=== PATIENT | female | born 1960 | race Two or more races ===

== ENCOUNTER 2017-02-24 18:29 | Emergency (ER) | payer OTHER ==
[~2017-02-24] VITALS: Ht 144.8 cm; Wt 48.1 kg
[~2017-02-24 18:29] MED LIST: GEMFPOW3; METFORMIN; OMEPRAZOLE
[2017-02-24 18:56] VITALS: BP 128/81
== END 2017-02-24 20:21 | disposition home or self-care (01) ==
LOC: ER 18:29
DX: H57.13 Ocular pain, bilateral (principal); E11.9 Type 2 diabetes mellitus without complications; E78.5 Hyperlipidemia, unspecified; Z77.098 Contact with and (suspected) exposure to other hazardous, chiefly nonmedicinal, chemicals

== ENCOUNTER 2017-03-17 14:10 | Emergency (ER) | payer OTHER ==
[~2017-03-17] VITALS: Ht 144.8 cm; Wt 48.5 kg
[2017-03-17] MEDS ORDERED: cefTRIAXone SOD 1,000 MG VL IM ONE (15:45)
[2017-03-17 16:06] VITALS: BP 162/96
== END 2017-03-17 16:24 | disposition home or self-care (01) ==
LOC: ER 14:10
DX: J03.90 Acute tonsillitis, unspecified (principal); E11.9 Type 2 diabetes mellitus without complications; E78.5 Hyperlipidemia, unspecified; Z88.8 Allergy status to other drugs, medicaments and biological substances; Z79.84 Long term (current) use of oral hypoglycemic drugs
CPT/HCPCS: 96372; 99283; J0696

== ENCOUNTER 2017-10-18 18:56 | Emergency (ER) | payer OTHER ==
[~2017-10-18] VITALS: Ht 142.2 cm; Wt 48.5 kg
[2017-10-18 19:45] LABS: Urine Bacteria FEW /hpf (None Seen); Urine Blood Negative /uL (Negative); Urine Specific Gravity 1.004 (1.001-1.035); Urine WBC 18 /hpf (0 - 5)
[2017-10-18 19:47] LABS: Basophils # (auto) 0.1 uL; Basophils % (auto) 0.9 % (0.0-2.0); Eosinophils # (auto) 0.2 uL; Eosinophils % (auto) 2.8 % (0.0-7.0); Hematocrit 39.1 % (36.0-46.0); Hemoglobin 13.4 g/dL (12.2-16.2); Lymphocytes % (auto) 26.9 % (10.0-50.0); Mean Corpuscular Hemoglobin 31.4 pg (28.0-32.0); Mean Corpuscular Hgb Conc. 34.2 g/dL (32.0-36.0); Mean Corpuscular Volume 91.8 fL (80.0-100.0); Monocytes # (auto) 0.4 uL; Monocytes % (auto) 5.9 % (0.0-12.0); Neutrophils # (auto) 4.8 uL; Neutrophils % (auto) 63.5 % (37.0-80.0); Nucleated Red Blood Cells % 0.1 %; Platelet Count (auto) 271 10^3/uL (140-450); Red Blood Cells 4.26 10^6/uL (4.0-5.20); Red Cell Distribution Width 12.6 % (11.8-14.3); White Blood Cell 7.5 10^3/uL (4.4-10.8)
[2017-10-18 20:00] LABS: INR 0.91 (0.9-1.15); Partial Thromboplastin Time 26.8 sec (23.78-33.04); Prothrombin Time 9.8 sec (9.27-12.13)
[2017-10-18 20:01] LABS: Alanine Aminotransferase 25 U/L (13-56); Albumin 4.2 g/dL (3.4-5.0); Alkaline Phosphatase 87 U/L (45-117); Amylase 51 U/L (25-115); Anion Gap 6 (5-15); Aspartate Aminotransferase 12 U/L (15-37); Bilirubin, Total 0.2 mg/dL (0.2-1.0); Blood Urea Nitrogen 15 mg/dL (7-18); Calcium 8.6 mg/dL (8.5-10.1); Carbon Dioxide 27 mmol/L (21-32); Chloride 103 mmol/L (98-107); GFR African American 103 mL/min; GFR Non-African American 85 mL/min; Glucose 195 mg/dL (74-106); Lipase 177 U/L (73-393); Potassium 3.9 mmol/L (3.5-5.1); Sodium 136 mmol/L (136-145)
[2017-10-18] MEDS ORDERED: cefTRIAXone SOD 1,000 MG VL IM ONE (22:45)
[2017-10-18 23:34] VITALS: BP 162/90
== END 2017-10-18 23:35 | disposition home or self-care (01) ==
LOC: ER 18:56
DX: R10.32 Left lower quadrant pain (principal)
CPT/HCPCS: 36415; 74176; 80053; 81001; 82150; 83690; 84484; 85025; 85610; 85730; 93005; 96372; 99285; J0696

== ENCOUNTER → 2018-11-08 | Outpatient (CLI) | payer BC ==
[2018-11-08 08:11] LABS: Urine Bacteria MOD /hpf (None Seen); Urine Blood Negative /uL (Negative); Urine Mucus FEW (None Seen); Urine Specific Gravity 1.024 (1.001-1.035); Urine WBC 4 /hpf (0 - 5)
[2018-11-08 08:15] LABS: Basophils # (auto) 0 uL; Eosinophils # (auto) 0.2 uL; Eosinophils % (auto) 4.6 % (0.0-7.0); Hematocrit 40.5 % (36.0-46.0); Hemoglobin 13.8 g/dL (12.2-16.2); Lymphocytes # (auto) 1.5 uL; Lymphocytes % (auto) 41.4 % (10.0-50.0); Mean Corpuscular Hemoglobin 31.2 pg (28.0-32.0); Mean Corpuscular Hgb Conc. 34.1 g/dL (32.0-36.0); Mean Corpuscular Volume 91.6 fL (80.0-100.0); Monocytes # (auto) 0.3 uL; Monocytes % (auto) 8.6 % (0.0-12.0); Neutrophils # (auto) 1.7 uL; Neutrophils % (auto) 44.4 % (37.0-80.0); Platelet Count (auto) 260 10^3/uL (140-450); Red Blood Cells 4.42 10^6/uL (4.0-5.20); Red Cell Distribution Width 12.4 % (11.8-14.3); White Blood Cell 3.7 10^3/uL (4.4-10.8)
[2018-11-08 08:22] LABS: Albumin 4.1 g/dL (3.4-5.0); Calcium 8.7 mg/dL (8.5-10.1); Potassium 4.3 mmol/L (3.5-5.1)
[2018-11-08 08:23] LABS: Protein, Urine 9.4 mg/dL (0.0-11.9)
[2018-11-08 08:27] LABS: BUN/Creatinine Ratio 32.8; Bilirubin, Total 0.6 mg/dL (0.2-1.0); CRP High Sensitivity 0.03 mg/dL (< 0.3); Total Protein 7.2 g/dL (6.4-8.2)
== END | disposition home or self-care (01) ==
LOC: LAB 07:43
PROVIDERS: ATTEND Internal Medicine Nephrology
DX: E11.9 Type 2 diabetes mellitus without complications (principal); I10 Essential (primary) hypertension; R21 Rash and other nonspecific skin eruption
CPT/HCPCS: 36415; 80053; 80061; 81001; 82570; 84156; 84439; 84443; 85025; 85652; 86038; 86141

== ENCOUNTER → 2019-01-25 | Outpatient (CLI) | payer BC ==
[2019-01-25 15:49] LABS: Urine WBC None Seen /hpf (0 - 5)
[2019-01-25 16:52] LABS: Urine Bacteria NONE SEEN /hpf (None Seen); Urine Blood Negative /uL (Negative); Urine Specific Gravity 1.021 (1.001-1.035)
== END | disposition home or self-care (01) ==
LOC: LAB 15:37
PROVIDERS: ATTEND Internal Medicine Nephrology
DX: R10.30 Lower abdominal pain, unspecified (principal); E78.5 Hyperlipidemia, unspecified; E11.9 Type 2 diabetes mellitus without complications; I10 Essential (primary) hypertension
CPT/HCPCS: 81001; 87086

== ENCOUNTER 2019-01-27 12:50 | Emergency (ER) | payer BC, OTHER ==
[~2019-01-27] VITALS: Ht 147.3 cm; Wt 68.0 kg
[2019-01-27 13:37] LABS: Urine Bacteria NONE SEEN /hpf (None Seen); Urine Blood 1+ /uL (Negative); Urine Mucus FEW (None Seen); Urine Specific Gravity 1.027 (1.001-1.035); Urine WBC 1 /hpf (0 - 5)
[2019-01-27] MEDS ORDERED: HYDROcodone-ACET 10/325MG TAB PO ONE (13:45)
[2019-01-27 14:02] LABS: Basophils # (auto) 0 uL; Basophils % (auto) 0.9 % (0.0-2.0); Eosinophils # (auto) 0.1 uL; Hematocrit 39.8 % (36.0-46.0); Hemoglobin 13.5 g/dL (12.2-16.2); Lymphocytes # (auto) 1.6 uL; Lymphocytes % (auto) 34.3 % (10.0-50.0); Mean Corpuscular Hemoglobin 31.2 pg (28.0-32.0); Mean Corpuscular Hgb Conc. 33.9 g/dL (32.0-36.0); Mean Corpuscular Volume 92.1 fL (80.0-100.0); Monocytes # (auto) 0.3 uL; Monocytes % (auto) 7.3 % (0.0-12.0); Neutrophils # (auto) 2.5 uL; Neutrophils % (auto) 55.5 % (37.0-80.0); Nucleated Red Blood Cells % 0.1 %; Platelet Count (auto) 252 10^3/uL (140-450); Red Blood Cells 4.33 10^6/uL (4.0-5.20); White Blood Cell 4.5 10^3/uL (4.4-10.8)
[2019-01-27 14:16] LABS: Albumin 3.9 g/dL (3.4-5.0); Calcium 8.7 mg/dL (8.5-10.1)
[2019-01-27 14:23] LABS: Bilirubin, Total 0.3 mg/dL (0.2-1.0); Total Protein 7.3 g/dL (6.4-8.2)
[2019-01-27 16:13] VITALS: BP 132/76
== END 2019-01-27 17:35 | disposition home or self-care (01) ==
LOC: ER 12:50
DX: R10.31 Right lower quadrant pain (principal); R35.0 Frequency of micturition; E11.9 Type 2 diabetes mellitus without complications; E78.5 Hyperlipidemia, unspecified; I10 Essential (primary) hypertension
CPT/HCPCS: 36415; 76856; 80053; 81001; 85025; 93005

== ENCOUNTER → 2019-03-04 | Outpatient (CLI) | payer BC, OTHER ==
[2019-03-04 15:58] LABS: Calcium 8.5 mg/dL (8.5-10.1)
[2019-03-04 15:59] LABS: INR 1.07 (0.9-1.15); Partial Thromboplastin Time 28.1 sec (23.64-32.05)
[2019-03-04 16:00] LABS: BUN/Creatinine Ratio 33.8
== END | disposition home or self-care (01) ==
LOC: LAB 15:30
PROVIDERS: ATTEND Internal Medicine Nephrology
DX: K76.89 Other specified diseases of liver (principal); N20.1 Calculus of ureter; N13.5 Crossing vessel and stricture of ureter without hydronephrosis
CPT/HCPCS: 36415; 80048; 85610; 85730

== ENCOUNTER 2020-12-03 14:38 | Emergency (ER) | payer BC ==
[~2020-12-03] VITALS: Ht 172.7 cm; Wt 52.2 kg
[2020-12-03 16:12] VITALS: BP 167/83
[2020-12-03] MEDS ORDERED: IBUPROFEN 800 MG TAB PO ONE (16:45)
== END 2020-12-03 17:19 | disposition home or self-care (01) ==
LOC: ER 14:38
DX: S63.632A Sprain of interphalangeal joint of right middle finger, initial encounter (principal); E11.9 Type 2 diabetes mellitus without complications; I10 Essential (primary) hypertension; E78.5 Hyperlipidemia, unspecified; Z98.890 Other specified postprocedural states; X50.0XXA Overexertion from strenuous movement or load, initial encounter; Y93.89 Activity, other specified; Y92.89 Other specified places as the place of occurrence of the external cause; Y99.8 Other external cause status
CPT/HCPCS: 29130; 73140

== ENCOUNTER → 2021-06-15 | Outpatient (CLI) | payer BC ==
[2021-06-15 17:01] LABS: BUN/Creatinine Ratio 39.6; Calcium 8.5 mg/dL (8.5-10.1)
== END | disposition home or self-care (01) ==
LOC: LAB 15:56
PROVIDERS: ATTEND Internal Medicine Nephrology
DX: E11.9 Type 2 diabetes mellitus without complications (principal)
CPT/HCPCS: 36415; 80048; 83036; 84439; 84443

== ENCOUNTER 2021-08-09 17:17 | Emergency (ER) | payer BC ==
[~2021-08-09] VITALS: Ht 142.2 cm; Wt 52.2 kg
[2021-08-09] MEDS ORDERED: amLODIPine BESYLATE 5 MG TAB PO ONE (17:30)
[2021-08-09 19:02] LABS: Basophils # (auto) 0 10 ^3/uL (0-0.2); Basophils % (auto) 0.8 % (0.0-2.0); Eosinophils # (auto) 0.1 10 ^3/uL (0-0.8); Eosinophils % (auto) 2.1 % (0.0-7.0); Hematocrit 37.3 % (36.0-46.0); Hemoglobin 13.1 g/dL (12.2-16.2); Lymphocytes # (auto) 1.7 10 ^3/uL (0.4-5.4); Lymphocytes % (auto) 34.7 % (10.0-50.0); Mean Corpuscular Hemoglobin 31.8 pg (28.0-32.0); Mean Corpuscular Hgb Conc. 35.2 g/dL (32.0-36.0); Mean Corpuscular Volume 90.5 fL (80.0-100.0); Monocytes # (auto) 0.5 10 ^3/uL (0-1.3); Neutrophils # (auto) 2.7 10 ^3/uL (1.6-8.6); Neutrophils % (auto) 53.4 % (37.0-80.0); Nucleated Red Blood Cells % 0.1 %; Red Blood Cells 4.12 10^6/uL (4.0-5.20); Red Cell Distribution Width 12.6 % (11.8-14.3)
[2021-08-09 19:19] LABS: Potassium 3.9 mmol/L (3.5-5.1)
[2021-08-09 19:26] LABS: Albumin 4.2 g/dL (3.4-5.0); BUN/Creatinine Ratio 28.1; Bilirubin, Total 0.2 mg/dL (0.2-1.0); Magnesium 2.4 mg/dL (1.6-2.6); Total Protein 7.6 g/dL (6.4-8.2)
[2021-08-09 21:25] VITALS: BP 165/96
== END 2021-08-09 21:42 | disposition home or self-care (01) ==
LOC: ER 17:17 → EEVIPCON 17:17 → ER 21:42
DX: I16.0 Hypertensive urgency (principal); E11.9 Type 2 diabetes mellitus without complications; E78.5 Hyperlipidemia, unspecified
CPT/HCPCS: 36415; 70450; 80053; 83735; 84484; 85025; 93005

== ENCOUNTER → 2022-06-13 | Outpatient (CLI) | payer BC ==
[2022-06-13 07:28] LABS: Basophils # (auto) 0.1 10 ^3/uL (0-0.2); Basophils % (auto) 1.2 % (0.0-2.0); Eosinophils # (auto) 0.1 10 ^3/uL (0-0.8); Eosinophils % (auto) 2.8 % (0.0-7.0); Hematocrit 37.9 % (36.0-46.0); Hemoglobin 13.1 g/dL (12.2-16.2); Lymphocytes # (auto) 1.9 10 ^3/uL (0.4-5.4); Lymphocytes % (auto) 42.3 % (10.0-50.0); Mean Corpuscular Hemoglobin 31.2 pg (28.0-32.0); Mean Corpuscular Hgb Conc. 34.6 g/dL (32.0-36.0); Mean Corpuscular Volume 90.2 fL (80.0-100.0); Monocytes # (auto) 0.3 10 ^3/uL (0-1.3); Monocytes % (auto) 6.8 % (0.0-12.0); Neutrophils # (auto) 2.1 10 ^3/uL (1.6-8.6); Neutrophils % (auto) 46.9 % (37.0-80.0); Nucleated Red Blood Cells % 0.1 %; Red Blood Cells 4.21 10^6/uL (4.0-5.20); Red Cell Distribution Width 12.5 % (11.8-14.3); White Blood Cell 4.5 10^3/uL (4.4-10.8)
[2022-06-13 07:30] LABS: Urine Bacteria NONE SEEN /hpf (None Seen); Urine Blood Negative /uL (Negative); Urine Mucus FEW (None Seen); Urine Specific Gravity 1.019 (1.001-1.035); Urine WBC 1 /hpf (0 - 5)
[2022-06-13 08:01] LABS: Potassium 4.4 mmol/L (3.5-5.1)
[2022-06-13 08:07] LABS: BUN/Creatinine Ratio 51.1 (10.0-20.0); Bilirubin, Total 0.4 mg/dL (0.2-1.0); Total Protein 7.2 g/dL (6.4-8.2)
== END | disposition home or self-care (01) ==
LOC: LAB 06:54
PROVIDERS: ATTEND Student in an Organized Health Care Education/Training Program
DX: I10 Essential (primary) hypertension (principal); E11.9 Type 2 diabetes mellitus without complications
CPT/HCPCS: 36415; 80053; 80061; 81001; 83036; 84443; 85025

== ENCOUNTER → 2023-04-07 | Outpatient (CLI) | payer BC ==
[2023-04-07 07:44] LABS: Basophils # (auto) 0 10 ^3/uL (0-0.2); Basophils % (auto) 1.1 % (0.0-2.0); Eosinophils # (auto) 0.1 10 ^3/uL (0-0.8); Eosinophils % (auto) 3.4 % (0.0-7.0); Hematocrit 41.9 % (36.0-46.0); Hemoglobin 14.1 g/dL (12.2-16.2); Lymphocytes # (auto) 1.8 10 ^3/uL (0.4-5.4); Lymphocytes % (auto) 44.3 % (10.0-50.0); Mean Corpuscular Hemoglobin 31.2 pg (28.0-32.0); Mean Corpuscular Hgb Conc. 33.7 g/dL (32.0-36.0); Mean Corpuscular Volume 92.4 fL (80.0-100.0); Monocytes # (auto) 0.4 10 ^3/uL (0-1.3); Monocytes % (auto) 9.2 % (0.0-12.0); Neutrophils # (auto) 1.7 10 ^3/uL (1.6-8.6); Nucleated Red Blood Cells % 0.2 %; Red Blood Cells 4.53 10^6/uL (4.0-5.20); Red Cell Distribution Width 12.6 % (11.8-14.3); White Blood Cell 4.1 10^3/uL (4.4-10.8)
[2023-04-07 08:22] LABS: Creatinine, Urine 97.96 mg/dL (30.0-125.0)
[2023-04-07 08:24] LABS: Alkaline Phosphatase 66 U/L (46-116); Anion Gap 7 (5-15); Calcium 9.5 mg/dL (8.5-10.1); Carbon Dioxide 25 mmol/L (20-30); Chloride 107 mmol/L (98-107); Glucose 155 mg/dL (74-106); Sodium 139 mmol/L (136-145); Triglycerides 171 mg/dL (< 150)
[2023-04-07 08:25] LABS: LDL Cholesterol 122 mg/dL (< 100); Urine Bacteria NONE SEEN /hpf (None Seen); Urine Blood Negative /uL (Negative); Urine Clarity Clear (Clear); Urine Color Yellow (Yellow); Urine Mucus FEW (None Seen); Urine Protein, UAD Negative (Negative); Urine Specific Gravity 1.024 (1.001-1.035); Urine Urobilinogen Normal (Negative); Urine WBC 42 /hpf (0 - 5); Urine pH 5.5 (5.0-8.0)
[2023-04-07 08:26] LABS: Albumin 4.6 g/dL (3.2-4.8); Aspartate Aminotransferase 36 U/L (13-40)
[2023-04-07 08:27] LABS: Bilirubin, Total 0.6 mg/dL (0.2-1.0); Cholesterol 194 mg/dL (< 200); HDL Cholesterol 42 mg/dL (40-59)
[2023-04-07 08:28] LABS: Alanine Aminotransferase 29 U/L (7-40)
[2023-04-07 08:29] LABS: Potassium 5.2 mmol/L (3.5-5.1)
[2023-04-07 08:30] LABS: BUN/Creatinine Ratio 18.3 (10.0-20.0); Blood Urea Nitrogen 11 mg/dL (9-23)
== END | disposition home or self-care (01) ==
LOC: LAB 07:12
PROVIDERS: ATTEND Student in an Organized Health Care Education/Training Program
DX: E11.9 Type 2 diabetes mellitus without complications (principal); I10 Essential (primary) hypertension; F41.0 Panic disorder [episodic paroxysmal anxiety]
CPT/HCPCS: 36415; 80053; 80061; 81001; 82043; 82570; 83036; 84443; 85025

== ENCOUNTER → 2023-09-29 | Outpatient (CLI) | payer BC ==
[2023-09-29 07:02] LABS: Urine Bacteria None Seen /hpf (None Seen)
[2023-09-29 07:25] LABS: Urine Blood Negative /uL (Negative); Urine Clarity Clear (Clear); Urine Color Light-Yellow (Yellow); Urine Mucus FEW (None Seen); Urine Protein, UAD Negative (Negative); Urine Specific Gravity 1.029 (1.001-1.035); Urine Urobilinogen Normal (Negative); Urine WBC 2 /hpf (0 - 5)
[2023-09-29 07:32] LABS: Basophils # (auto) 0 10 ^3/uL (0-0.2); Basophils % (auto) 1.1 % (0.0-2.0); Eosinophils # (auto) 0.2 10 ^3/uL (0-0.8); Hematocrit 35.9 % (36.0-46.0); Hemoglobin 12.5 g/dL (12.2-16.2); Lymphocytes # (auto) 1.8 10 ^3/uL (0.4-5.4); Lymphocytes % (auto) 43.9 % (10.0-50.0); Mean Corpuscular Hemoglobin 31.8 pg (28.0-32.0); Mean Corpuscular Hgb Conc. 34.8 g/dL (32.0-36.0); Mean Corpuscular Volume 91.5 fL (80.0-100.0); Monocytes # (auto) 0.4 10 ^3/uL (0-1.3); Monocytes % (auto) 9.4 % (0.0-12.0); Neutrophils # (auto) 1.7 10 ^3/uL (1.6-8.6); Neutrophils % (auto) 41.6 % (37.0-80.0); Red Blood Cells 3.93 10^6/uL (4.0-5.20); Red Cell Distribution Width 12.7 % (11.8-14.3); White Blood Cell 4.1 10^3/uL (4.4-10.8)
[2023-09-29 07:38] LABS: Alanine Aminotransferase 17 U/L (7-40); Albumin 4.2 g/dL (3.2-4.8); Alkaline Phosphatase 76 U/L (46-116); Anion Gap 7 (5-15); Aspartate Aminotransferase 10 U/L (13-40); BUN/Creatinine Ratio 26.7 (10.0-20.0); Bilirubin, Total 0.4 mg/dL (0.2-1.0); Blood Urea Nitrogen 16 mg/dL (9-23); Carbon Dioxide 23 mmol/L (20-30); Chloride 112 mmol/L (98-107); Cholesterol 162 mg/dL (< 200); Glucose 167 mg/dL (74-106); HDL Cholesterol 36 mg/dL (40-59); LDL Cholesterol 100 mg/dL (< 100); Potassium 4.1 mmol/L (3.5-5.1); Sodium 142 mmol/L (136-145); Total Protein 6.1 g/dL (5.7-8.2); Triglycerides 134 mg/dL (< 150)
[2023-09-29 08:08] LABS: Creatinine, Urine 117.08 mg/dL (30.0-125.0)
== END | disposition home or self-care (01) ==
LOC: LAB 06:43
PROVIDERS: ATTEND Student in an Organized Health Care Education/Training Program
DX: Z12.11 Encounter for screening for malignant neoplasm of colon (principal); I10 Essential (primary) hypertension; E11.9 Type 2 diabetes mellitus without complications; R14.0 Abdominal distension (gaseous)
CPT/HCPCS: 36415; 80053; 80061; 81001; 82043; 82570; 83036; 84443; 85025

== ENCOUNTER 2024-08-13 07:27 | Outpatient (CLI) | payer BC ==
[2024-08-13 07:45] LABS: Basophils # (auto) 0 10 ^3/uL (0-0.2); Eosinophils # (auto) 0.2 10 ^3/uL (0-0.8); Eosinophils % (auto) 3.8 % (0.0-7.0); Hematocrit 39.7 % (36.0-46.0); Hemoglobin 13.5 g/dL (12.2-16.2); Lymphocytes # (auto) 1.6 10 ^3/uL (0.4-5.4); Lymphocytes % (auto) 35.9 % (10.0-50.0); Mean Corpuscular Hemoglobin 31.2 pg (28.0-32.0); Mean Corpuscular Hgb Conc. 34.1 g/dL (32.0-36.0); Mean Corpuscular Volume 91.6 fL (80.0-100.0); Monocytes # (auto) 0.4 10 ^3/uL (0-1.3); Monocytes % (auto) 8.9 % (0.0-12.0); Neutrophils # (auto) 2.3 10 ^3/uL (1.6-8.6); Neutrophils % (auto) 50.4 % (37.0-80.0); Nucleated Red Blood Cells % 0.1 %; Platelet Count (auto) 248 10^3/uL (140-450); Red Blood Cells 4.33 10^6/uL (4.0-5.20); Red Cell Distribution Width 12.7 % (11.8-14.3); White Blood Cell 4.5 10^3/uL (4.4-10.8)
[2024-08-13 08:28] LABS: Creatinine, Urine 102.43 mg/dL (30.0-125.0)
[2024-08-13 08:30] LABS: Microalb/Creat Ratio, Urine < 3.0
[2024-08-13 08:35] LABS: Alanine Aminotransferase 20 U/L (7-40); Albumin 4.5 g/dL (3.2-4.8); Alkaline Phosphatase 67 U/L (46-116); Anion Gap 8 (5-15); Aspartate Aminotransferase 15 U/L (13-40); BUN/Creatinine Ratio 30.3 (10.0-20.0); Bilirubin, Total 0.6 mg/dL (0.2-1.0); Blood Urea Nitrogen 20 mg/dL (9-23); Calcium 9.6 mg/dL (8.7-10.4); Carbon Dioxide 25 mmol/L (20-31); Cholesterol 187 mg/dL (< 200); Potassium 4.7 mmol/L (3.5-5.1); Sodium 142 mmol/L (136-145); Total Protein 6.7 g/dL (5.7-8.2)
[2024-08-13 08:45] LABS: Chloride 109 mmol/L (98-107); HDL Cholesterol 40 mg/dL (40-59); LDL Cholesterol 107 mg/dL (< 100); Triglycerides 217 mg/dL (< 150)
[2024-08-13 08:52] LABS: Glucose 174 mg/dL (74-106)
== END 2024-08-13 17:00 | disposition home or self-care (01) ==
LOC: LAB 07:27
PROVIDERS: ATTEND Student in an Organized Health Care Education/Training Program
DX: I10 Essential (primary) hypertension (principal); N39.0 Urinary tract infection, site not specified; E11.9 Type 2 diabetes mellitus without complications
CPT/HCPCS: 36415; 80053; 80061; 82043; 82570; 83036; 84443; 85025; 87086

== ENCOUNTER 2024-12-24 08:34 | Outpatient (CLI) | payer BC ==
[2024-12-24 09:24] LABS: Alanine Aminotransferase 19 U/L (7-40); Albumin 4.2 g/dL (3.2-4.8); Alkaline Phosphatase 59 U/L (46-116); Anion Gap 9 (5-15); Calcium 8.8 mg/dL (8.7-10.4); Carbon Dioxide 26 mmol/L (20-31); Chloride 106 mmol/L (98-107); Cholesterol 129 mg/dL (< 200); HDL Cholesterol 42 mg/dL (40-59); Potassium 4.9 mmol/L (3.5-5.1); Sodium 141 mmol/L (136-145); Total Protein 6.5 g/dL (5.7-8.2); Triglycerides 110 mg/dL (< 150)
[2024-12-24 09:25] LABS: Bilirubin, Total 0.6 mg/dL (0.2-1.0)
[2024-12-24 09:26] LABS: BUN/Creatinine Ratio 23.0 (10.0-20.0); Blood Urea Nitrogen 14 mg/dL (9-23)
[2024-12-24 09:27] LABS: Glucose 155 mg/dL (74-106)
== END 2024-12-24 17:00 | disposition home or self-care (01) ==
LOC: LAB 08:34
PROVIDERS: ATTEND Nurse Practitioner Family
DX: E11.9 Type 2 diabetes mellitus without complications
CPT/HCPCS: 36415; 80053; 80061; 83036

== ENCOUNTER 2025-01-22 07:05 | Outpatient (CLI) | payer BC | END 2025-01-22 17:00 | disposition home or self-care (01) | LOC: LAB 07:05 | PROVIDERS: ATTEND Student in an Organized Health Care Education/Training Program | DX: E55.9 Vitamin D deficiency, unspecified (principal); D50.0 Iron deficiency anemia secondary to blood loss (chronic); R10.13 Epigastric pain | CPT/HCPCS: 82306; 82607; 83013 ==

== ENCOUNTER 2025-02-13 18:18 | Inpatient (IN) | payer BC ==
[~2025-02-13] VITALS: Ht 142.2 cm; Wt 53.2 kg
[2025-02-13 18:52] LABS: Hematocrit 39.8 % (36.0-46.0); Hemoglobin 13.7 g/dL (12.2-16.2); Mean Corpuscular Hemoglobin 31.5 pg (28.0-32.0); Mean Corpuscular Volume 91.4 fL (80.0-100.0); Nucleated Red Blood Cells % 0.1 %
[2025-02-13 18:53] LABS: Chloride 101 mmol/L (98-107); Potassium 3.9 mmol/L (3.5-5.1); Sodium 138 mmol/L (136-145)
[2025-02-13 18:54] LABS: Anion Gap 13 (5-15); Calcium 9.5 mg/dL (8.7-10.4); Carbon Dioxide 24 mmol/L (20-31)
[2025-02-13 18:59] LABS: BUN/Creatinine Ratio 21.9 (10.0-20.0); Blood Urea Nitrogen 21 mg/dL (9-23)
[2025-02-13 19:05] LABS: Glucose 266 mg/dL (74-106)
--- NOTE | 2025-02-13 19:21 | ED.PDOC ---
HPI Comments 64-year-old female with past medical history of hypertension and diabetes who came to ER for right-sided neck pain, arm pain, chest pain over the past day. States earlier today she started having chest tightness, followed by right- sided neck pain, radiating to right shoulder. Patient self-medicated with a muscle relaxants for the pain. Noted that her blood pressure was elevated at home, with recurrence of chest tightness the patient come to the ER. Reports compliance with her medications. No shortness of breath. No recent fever, cough. No numbness, weakness of the extremities. Chief Complaint: High Blood Pressure Time Seen by MD: 19:21 Primary Care Provider: CLARENCE Souza Notes: Nurses Notes Allergies: Coded Allergies: NO KNOWN ALLERGIES (Unverified , 08/26/10) Home Meds Reported Medications [Omeprazole] No Conflict Check 08/26/10 Gemfibrozil (Gemfibrozil) Pow 08/26/10 [Metformin] No Conflict Check 08/26/10 Information Source: Patient Mode of Arrival: Ambulatory Past Medical History PAST MEDICAL HISTORY: DM, Gallstones, High Lipids, HTN Surgical History: DATA ANALYST History: No Pertinent DATA ANALYST History Family History Family History: Family hx of DM, Family hx of HTN Social History Smoker: Non-Smoker Alcohol: Occasionally Drugs: Denies Drug Use Lives In: Home Constitutional: denies: chills, diaphoresis, fatigue, fever, malaise, sweats, weakness, others EENTM: denies: blurred vision, double vision, ear bleeding, ear discharge, ear drainage, ear pain, ear ringing, eye pain, eye redness, hearing loss, mouth pain, mouth swelling, nasal discharge, nose bleeding, nose congestion, nose pain, photophobia, tearing, throat pain, throat swelling, voice changes, others Respiratory: denies: cough, hemoptysis, orthopnea, SOB at rest, shortness of breath, SOB with excertion, stridor, wheezing, others Cardiovascular: reports: chest pain; denies: dizzy spells, diaphoresis, Dyspnea on exertion, edema, irregular heart beat, left arm pain, lightheadedness, palpitations, PND, syncope, others Gastrointestinal: denies: abdomen distended, abdominal pain, blood streaked bowels, constipated, diarrhea, dysphagia, difficulty swallowing, hematemesis, melena, nausea, poor appetite, poor fluid intake, rectal bleeding, rectal pain, vomiting, others Genitourinary: denies: abnormal vagina bleeding, burning, dyspareunia, dysuria, flank pain, frequency, hematuria, incontinence, pain, , vagina discharge, urgency, others Neurological: denies: dizziness, fainting, headache, left sided numbness, left sided weakness, numbness, paresthesia, pre-existing deficit, right sided numbness, right sided weakness, seizure, speech problems, tingling, tremors, we akness, others Musculoskeletal: reports: muscle pain, neck pain; denies: back pain, gout, joint pain, joint swelling, muscle stiffness, others Integumetry: denies: bruises, change in color, change in hair/nails, dryness, laceration, lesions, lumps, rash, wounds, others Allergic/Immunocompromised: denies: Difficulty Healing, Frequent Infections, Hives, Itching, others Hematologic/Lymphatic: denies: anemia, blood clots, easy bleeding, easy bruising, swollen glands, others Endocrine: denies: excessive hunger, excessive sweating, excessive thirst, excessive urination, flushing, intolerance to cold, intolerance to heat, unexplained weight gain, unexplained weight loss, others Psychiatric: denies: anxiety, bipolar disorder, depression, hopeless, panic disorder, schizophrenia, sleepless, suicidal, others Physical Exam General Appearance: No Apparent Distress, Normal HEENT: Normal ENT Inspection, Pharynx Normal, TMs Normal Neck: Full Range of Motion, Normal, Normal Inspection, Other (+ttp along right trapezius) Respiratory: Chest Non-Tender, Lungs Clear, No Accessory Muscle Use, No Respiratory Distress, Normal Breath Sounds Cardiovascular: No Edema, No JVD, No Murmur, No Gallop, Normal Peripheral Pulses, Regular Rate/Rhythm Breast Exam: Deferred Gastrointestinal: No Organomegaly, Non Tender, No Pulsatile Mass, Normal Bowel Sounds, Soft Genitalia: Deferred Pelvic: Deferred Rectal: Deferred Extremities: No calf tenderness, Normal capillary refill, Normal inspection, Normal range of motion, Non-tender, No pedal edema Musculoskeletal : Apperance: Normal Neurologic: Alert, tools and parts attendant II-XII nml as Tested, No Motor Deficits, Normal Affect, Normal Mood, No Sensory Deficits Cerebellar Function: Normal Reflexes: Normal Skin: Dry, Normal Color, Warm Lymphatic: No Adenopathy EKG EKG : Pulse Rate (adult): 109 Cardiac Rhythm: ST Block: None Hypertrophy: None ST: Normal Was a procedure done? Was a procedure done?: No CP Differential Dx Differential Diagnosis: Angina, Anxiety / Panic Attack Differential Diagnosis: HTN Essential, HTN Accelerated Differential Diagnosis: Angina, Chest Wall Pain, Costochondritis, Esophageal reflux/spasm, Gastritis, Myocardial Infarction X-Ray, Labs, Meds, VS Vital Signs Date Time Temp Pulse Resp B/P (MAP) Pulse Ox O2 Delivery O2 Flow Rate FiO2 02/13/25 20:11 75 191/101 02/13/25 20:08 98.8 02/13/25 19:21 109 02/13/25 18:27 109 02/13/25 18:20 98.6 106 18 197/95 96 98.6 Lab Test 02/13/25 19:12 02/13/25 18:29 Range/Units Troponin I High Sensitivity 48 *H 42 *H </=34 ng/L White Blood Count 7.0 4.4-10.8 10^3/uL Red Blood Count 4.36 4.0-5.20 10^6/uL Hemoglobin 13.7 12.2-16.2 g/dL Hematocrit 39.8 36.0-46.0 % Mean Corpuscular Volume 91.4 80.0-100.0 fL Mean Corpuscular Hemoglobin 31.5 28.0-32.0 pg Mean Corpuscular Hemoglobin Concent 34.4 32.0-36.0 g/dL Red Cell Distribution Width 12.6 11.8-14.3 % Platelet Count 284 140-450 10^3/uL Mean Platelet Volume 8.5 6.9-10.8 fL Neutrophils (%) (Auto) 57.8 37.0-80.0 % Lymphocytes (%) (Auto) 31.7 10.0-50.0 % Monocytes (%) (Auto) 7.4 0.0-12.0 % Eosinophils (%) (Auto) 2.2 0.0-7.0 % Basophils (%) (Auto) 0.9 0.0-2.0 % Neutrophils # (Auto) 4.0 1.6-8.6 10 ^3/uL Lymphocytes # (Auto) 2.2 0.4-5.4 10 ^3/uL Monocytes # (Auto) 0.5 0-1.3 10 ^3/uL Eosinophils # (Auto) 0.2 0-0.8 10 ^3/uL Basophils # (Auto) 0.1 0-0.2 10 ^3/uL Nucleated Red Blood Cells 0.1 % Sodium Level 138 136-145 mmol/L Potassium Level 3.9 3.5-5.1 mmol/L Chloride Level 101 98-107 mmol/L Carbon Dioxide Level 24 20-31 mmol/L Anion Gap 13 5-15 Blood Urea Nitrogen 21 9-23 mg/dL Creatinine 0.96 0.550-1.02 mg/dL Glomerular Filtration Rate Calc 66 >90 mL/min BUN/Creatinine Ratio 21.9 H 10.0-20.0 Serum Glucose 266 H 74-106 mg/dL Calcium Level 9.5 8.7-10.4 mg/dL Vitamin B12 Level Pending Thyroid Stimulating Hormone (TSH) Pending Current Medications Medications (Trade) Dose Ordered Sig/Wilma Route Start Time Stop Time Status Last Admin Aspirin 325 mg ONCE ONCE PO 02/13/25 19:30 02/13/25 19:31 DC 02/13/25 20:08 Acetaminophen (Tylenol Tablet) 650 mg ONCE ONCE PO 02/13/25 19:30 02/13/25 19:31 DC 02/13/25 20:08 Lidocaine (Lidoderm 5% Topical Patch) 1 patch ONCE ONCE TOP 02/13/25 19:30 02/13/25 19:31 DC 02/13/25 21:33 Labetalol HCl (Labetalol HCl) 20 mg ONCE ONCE IV 02/13/25 19:30 02/13/25 19:31 DC 02/13/25 20:11 Time of 1ST Reevaluation: 19:17 Reevaluation 1ST: Unchanged Patient Education/Counseling: Diagnosis, Treatment Family Education/Counseling: No Family Present SEPSIS Sepsis Screen Date sepsis recognized/suspect: Feb 13, 2025 Time Sepsis recognized/suspect: 1820 Recent Procedure: No On Antibiotic Therapy: No Respiratory Rate >20: No Heart Rate >90: Yes Temp<36 C (96.8 F) or >38.3 C: No SBP <90 or MAP <65 mmHG: No New Acute Mental Status Change: No Is the patient on CPAP, BIPAP,: No Physician Orders Electrocardigram (02/13/25 18:23) Troponin-I Hs (02/13/25 21:23) Electrocardigram (02/13/25 19:23) Electrocardigram (02/13/25 21:23) Urinalysis (02/13/25 18:24) Chest Xray 1 View (02/13/25 18:24) Vital Signs Date Time Temp Pulse Resp B/P (MAP) Pulse Ox O2 Delivery O2 Flow Rate FiO2 02/13/25 20:11 75 191/101 02/13/25 20:08 98.8 02/13/25 19:21 109 02/13/25 18:27 109 02/13/25 18:20 98.6 106 18 197/95 96 98.6 Laboratory Tests Test 02/13/25 18:29 White Blood Count 7.0 10^3/uL (4.4-10.8) Medications Medications Dose Ordered Sig/Wilma Route Start Time Stop Time Status Last Admin Dose Admin Acetaminophen 650 mg ONCE ONCE PO 02/13/25 19:30 02/13/25 19:31 DC 02/13/25 20:08 Aspirin 325 mg ONCE ONCE PO 02/13/25 19:30 02/13/25 19:31 DC 02/13/25 20:08 Labetalol HCl 20 mg ONCE ONCE IV 02/13/25 19:30 02/13/25 19:31 DC 02/13/25 20:11 Lidocaine 1 patch ONCE ONCE TOP 02/13/25 19:30 02/13/25 19:31 DC 02/13/25 21:33 Departure 1 Departure Time of Disposition: 19:59 (64-year-old female with past medical history of hypertension and diabetes who came to ER for right-sided neck pain, arm pain, chest pain over the past day. Patient arrives with elevated blood pressure, given the reports of chest discomfort with her comorbidities consider ACS. Patient's initial high sensitivity troponin is minimally elevated, has a heart score of 5. Repeated troponin is stably minimally elevated in the 40s. Patient was given an aspirin for this. Patient with uncontrolled hypertension likely further contributing to end-organ damage, demand ischemia given IV labetalol for better blood control. Patient also with right-sided neck pain, has no numbness, weakness of the extremity, no signs concerning for acute cervical cord compromise, does not warrant any emergent MR imaging of the cervical spine. Patient likely with muscular pain. Was given oral Tylenol, topical lidocaine patch for this. Pt with no tearing chest pain do not suspect aortic dissection. Patient with no evidence of widened mediastinum on chest x-ray. Pt with positive troponin she will be admitted for further workup of chest pain.) Impression: Primary Impression: Midsternal chest pain Additional Impressions: Neck pain on right side Uncontrolled hypertension Elevated troponin I level Demand ischemia Disposition: ADMITTED INPATIENT Condition: Stable Discharged With: Self Critical Care Note Critical Care Time?: Yes (35 min-critical care time only) Critical care comment: Patient with uncontrolled hypertension, signs of acute end-organ damage with elevated troponin. Required aspirin administration and IV antihypertensives. Stability Stability form required: No Heart Score Heart Score: Heart Score Response (Comments) Value History Moderate Suspicious 1 EKG Repolarization Disturb 1 Age 45-64 1 Risk Factors 1 or 2 risk factors 1 Troponin 1-2 x's Normal limit 1 Total 5 I personally scribed for SARBJIT KO MD ([email or web address]) on 02/13/25 at 19:21. Electronically submitted by Donnie Álvarez ([facility]). SARBJIT KO MD Feb 13, 2025 19:21
[2025-02-13] MEDS: ACETAMINOPHEN 325 MG TAB PO ONE (20:08)
[2025-02-13] MEDS: LABETALOL HCL 20 MG/4 ML VL IV ONE (20:11)
--- NOTE | 2025-02-13 20:49 | DVH ---
CHEST RADIOGRAPH Indication: CHEST TIGHTNESS Technique: Single frontal view of the chest was obtained Comparison: XY CHEST XRAY 1 VIEW on DOS: 08/11/23, XY CHEST PORTABLE on DOS: 05/31/22 FINDINGS/IMPRESSION: The lungs are clear. The cardiomediastinal silhouette is unremarkable. No pleural effusion or pneumothorax. No acute osseous abnormality.
--- NOTE | 2025-02-13 20:52 | DVHHPRES ---
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 She feels something different in her chest. Then she started having right neck pain and radiating to right arm I. She measured her blood pressure during the episode, which was 186/99. She took lisinopril 20 mg. Which did not improve her blood pressure. Then she took her regular dose of glipizide and muscle relaxant. Currently the patient is experiencing 6/10 pain. Does not have any shortness of breaths now. During the chest pain episode she had a little bit of shortness of breaths. No relation with sitting up or lying down. Past medical history: As above Past surgical history: None Allergies: None Home medications: Glipizide, insulin, baclofen, atorvastatin Smoking: Never Alcohol: Never Drugs: Never Family doctor: Dr. 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 Code status: Full code Review of Systems Cardiovascular: Chest Pain Allergies: Coded Allergies: NO KNOWN ALLERGIES (Unverified , 08/26/10) Exam Vital Signs Vital Signs Date Time Temp Pulse Resp B/P (MAP) Pulse Ox O2 Delivery O2 Flow Rate FiO2 02/13/25 20:11 75 191/101 02/13/25 20:08 98.8 02/13/25 18:20 18 96 Exam Pt is lying on bed General Appearance: Alert, Oriented X3, Cooperative, Mild distress HEENT: Atraumatic, Mucous membranes moist/pink Respiratory: Clear to auscultation, Normal air movement, No added sounds Cardiovascular: Regular rate, Normal S1, Normal S2, No murmurs Abdominal/ : Active bowel sounds, Soft, no distention, no tenderness Extremities: No edema, Normal pulses, No tenderness/swelling Skin: No Significant rash, except past surgical scars Neuro: Normal speech, sensorimotor deficits none Psych/Mental Status: Mental status NL, Mood NL Nurse was there as ab initio etl developer during examination Labs/Xrays Labs Test 02/13/25 19:12 02/13/25 18:29 Range/Units Troponin I High Sensitivity 48 *H </=34 ng/L White Blood Count 7.0 4.4-10.8 10^3/uL Red Blood Count 4.36 4.0-5.20 10^6/uL Hemoglobin 13.7 12.2-16.2 g/dL Hematocrit 39.8 36.0-46.0 % Mean Corpuscular Volume 91.4 80.0-100.0 fL Mean Corpuscular Hemoglobin 31.5 28.0-32.0 pg Mean Corpuscular Hemoglobin Concent 34.4 32.0-36.0 g/dL Red Cell Distribution Width 12.6 11.8-14.3 % Platelet Count 284 140-450 10^3/uL Mean Platelet Volume 8.5 6.9-10.8 fL Neutrophils (%) (Auto) 57.8 37.0-80.0 % Lymphocytes (%) (Auto) 31.7 10.0-50.0 % Monocytes (%) (Auto) 7.4 0.0-12.0 % Eosinophils (%) (Auto) 2.2 0.0-7.0 % Basophils (%) (Auto) 0.9 0.0-2.0 % Neutrophils # (Auto) 4.0 1.6-8.6 10 ^3/uL Lymphocytes # (Auto) 2.2 0.4-5.4 10 ^3/uL Monocytes # (Auto) 0.5 0-1.3 10 ^3/uL Eosinophils # (Auto) 0.2 0-0.8 10 ^3/uL Basophils # (Auto) 0.1 0-0.2 10 ^3/uL Nucleated Red Blood Cells 0.1 % Sodium Level 138 136-145 mmol/L Potassium Level 3.9 3.5-5.1 mmol/L Chloride Level 101 98-107 mmol/L Carbon Dioxide Level 24 20-31 mmol/L Anion Gap 13 5-15 Blood Urea Nitrogen 21 9-23 mg/dL Creatinine 0.96 0.550-1.02 mg/dL Glomerular Filtration Rate Calc 66 >90 mL/min BUN/Creatinine Ratio 21.9 H 10.0-20.0 Serum Glucose 266 H 74-106 mg/dL Calcium Level 9.5 8.7-10.4 mg/dL SEPSIS Sepsis Screen Date sepsis recognized/suspect: Feb 13, 2025 Time Sepsis recognized/suspect: 1821 Recent Procedure: No On Antibiotic Therapy: No Respiratory Rate >20: No Heart Rate >90: Yes Temp<36 C (96.8 F) or >38.3 C: No SBP <90 or MAP <65 mmHG: No New Acute Mental Status Change: No Is the patient on CPAP, BIPAP,: No Physician Orders Electrocardigram (02/13/25 18:23) Troponin-I Hs (02/13/25 21:23) Electrocardigram (02/13/25 19:23) Electrocardigram (02/13/25 21:23) Urinalysis (02/13/25 18:24) Chest Xray 1 View (02/13/25 18:24) Vital Signs Date Time Temp Pulse Resp B/P (MAP) Pulse Ox O2 Delivery O2 Flow Rate FiO2 02/13/25 20:11 75 191/101 02/13/25 20:08 98.8 02/13/25 19:21 109 02/13/25 18:27 109 02/13/25 18:20 98.6 106 18 197/95 96 98.6 Laboratory Tests Test 02/13/25 18:29 White Blood Count 7.0 10^3/uL (4.4-10.8) Medications Medications Dose Ordered Sig/Wilma Route Start Time Stop Time Status Last Admin Dose Admin Acetaminophen 650 mg ONCE ONCE PO 02/13/25 19:30 02/13/25 19:31 DC 02/13/25 20:08 650 MG Aspirin 325 mg ONCE ONCE PO 02/13/25 19:30 02/13/25 19:31 DC 02/13/25 20:08 325 MG Labetalol HCl 20 mg ONCE ONCE IV 02/13/25 19:30 02/13/25 19:31 DC 02/13/25 20:11 20 MG Assessment/Plan Assessment/Plan Chest pain rule out ACS NSTEMI type 1 versus type 2 Hypertensive heart disease EKG: No ST elevation, minimal ST depression in inferior leads Troponin: 40s Echocardiography ordered Aspirin loading dose given Atorvastatin Lisinopril CXR: No abnormality detected Urinalysis ordered Uncontrolled type 2 diabetes mellitus Insulin Lantus Mild insulin sliding scale GI prophylaxis: Pantoprazole DVT prophylaxis: Lovenox Diet: Cardiac Goals of care discussed with the patient for more than 27 minutes: Full code status Case discussed with Dr. Trammell, patient and RN Plan discussed with: Patient, Other Visit Coding STANDARD RES Billing Provider: GISELA TRAMMELL MD Date of Service if different f: Feb 13, 2025 Common Visit Codes: [id number] INP/OBS CARE (HIGH) Secondary Visit Codes: [id number] CARE PLAN 30 MINUTES SOHAIL LI RESIDENT Feb 13, 2025 20:52
[2025-02-13] MEDS ORDERED: ONDANSETRON HCL 4 MG/2 ML VIAL IV PRN (21:00)
[2025-02-13] MEDS ORDERED: DEXTROSE (50%) 50ML SYRG IV PRN (21:15)
[2025-02-13] MEDS: KETOROLAC TROMETH 30 MG/ML 1ML VIAL IV ONE (21:30)
[2025-02-13] MEDS: ENOXAPARIN SOD 40 MG/0.4 ML SYRINGE SC SCH (21:33)
[2025-02-13] MEDS: LIDOCAINE 5% TOPICAL PATCH TOP ONE (21:33)
[2025-02-13 21:45] VITALS: BP 124/51; PULSE 85; RESP 20; TEMP 98.4; O2SAT 97
[2025-02-13 22:21] VITALS: BP 124/51; PULSE 78; PULSE 85; RESP 18; RESP 20; TEMP 98.4; O2SAT 97
[2025-02-13] MEDS: ACCU-CHEK COMFORT CURVE STRIP VI SCH (22:54)
[2025-02-13] MEDS: ATORVASTATIN 20 MG TAB PO ONE (22:54)
[2025-02-13] MEDS: InsuLIN REG 1unit/0.01ml Soln (100units/ml) SC SCH (22:55)
[2025-02-14] VITALS (9 sets, daily range): BP systolic 114–143; BP diastolic 71–81; PULSE 78–89; RESP 16–18; TEMP 97.8–98.5; O2SAT 95–99
[2025-02-14 03:50] LABS: Urine Protein, UAD Negative (Negative)
[2025-02-14 04:01] LABS: Amphetamine Screen, Urine NEGATIVE (NEGATIVE); Barbiturate Scree,Urine NEGATIVE (NEGATIVE); Benzodiazephine Screen, Urine NEGATIVE (NEGATIVE); Cannabinoid Screen, Urine NEGATIVE (NEGATIVE); Cocaine Screen, Urine NEGATIVE (NEGATIVE); Opiate Scree,Urine NEGATIVE (NEGATIVE); Phencyclidine Screen, Urine NEGATIVE (NEGATIVE)
[2025-02-14] MEDS: PANTOPRAZOLE 40 MG TAB PO SCH (05:56)
[2025-02-14] MEDS: INSULIN LANTUS (GLARGINE) 1 /0.01ml (100units/ml) SC SCH (06:00)
[2025-02-14 07:29] LABS: Hematocrit 38.6 % (36.0-46.0); Hemoglobin 12.8 g/dL (12.2-16.2); Mean Corpuscular Hemoglobin 30.5 pg (28.0-32.0); Mean Corpuscular Volume 91.5 fL (80.0-100.0); Nucleated Red Blood Cells % 0.1 %
[2025-02-14 07:38] LABS: INR 0.98 (0.9-1.15); Partial Thromboplastin Time 29.3 SEC (24.5-34.5); Prothrombin Time 10.4 sec (9.3-11.8)
[2025-02-14 07:41] LABS: Alanine Aminotransferase 25 U/L (7-40); Albumin 4.5 g/dL (3.2-4.8); Alkaline Phosphatase 81 U/L (46-116); Anion Gap 10 (5-15); BUN/Creatinine Ratio 20.3 (10.0-20.0); Bilirubin, Total 0.5 mg/dL (0.2-1.0); Blood Urea Nitrogen 13 mg/dL (9-23); Calcium 9.5 mg/dL (8.7-10.4); Carbon Dioxide 28 mmol/L (20-31); Chloride 102 mmol/L (98-107); Potassium 3.5 mmol/L (3.5-5.1); Sodium 140 mmol/L (136-145); Total Protein 7.1 g/dL (5.7-8.2)
[2025-02-14 07:48] LABS: Glucose 165 mg/dL (74-106)
[2025-02-14] MEDS: ERGOCALCIFEROL 50,000 UNIT(1.25MG) CAP PO SCH (09:18)
[2025-02-14] MEDS: LISINOPRIL 20 MG TAB PO SCH (09:19)
[2025-02-14] MEDS: ACETAMINOPHEN 325 MG TAB PO PRN (09:25)
[2025-02-14 09:26] LABS: Alanine Aminotransferase 23 U/L (7-40); Alkaline Phosphatase 81 U/L (46-116); Total Protein 7.1 g/dL (5.7-8.2)
[2025-02-14 09:27] LABS: Albumin 4.5 g/dL (3.2-4.8); Bilirubin, Direct < 0.1 mg/dL (<0.3); Bilirubin, Total 0.4 mg/dL (0.2-1.0); Cholesterol 180 mg/dL (< 200); HDL Cholesterol 38 mg/dL (40-59); Triglycerides 286 mg/dL (< 150)
--- NOTE | 2025-02-14 10:13 | ECG ---
[facility] Test Date: 2025-02-13 Test Time: 18:27:40 Pat Name: ANA KO Department: Room: 0206T A Gender: F Microcomputer Technician: WAN : 1960 Requested By: FALGUNI KO* Order Number: [id number] Reading MD: Albino Pulido Measurements Intervals [place] Rate: 109 P: 72 ID: [id number] QRS: 68 QRSD: 93 T: 52 QT: 322 QTc: 434 Interpretive Statements Sinus tachycardia Minimal ST depression, diffuse leads Electronically Signed On 02-20-2025 18:43:18 PST by Albino Pulido Please click the below link to view image of tracing.
--- NOTE | 2025-02-14 10:13 | ECG ---
[facility] Test Date: 2025-02-13 Test Time: 19:34:42 Pat Name: ANA KO Department: Room: 0206T A Gender: F Coach Professional Athletes: TAYA : 1960 Requested By: FALGUNI KO* Order Number: [id number] Reading MD: Albino Pulido Measurements Intervals [place] Rate: 99 P: 60 ME: 139 QRS: 61 QRSD: 93 T: 46 QT: 342 QTc: 439 Interpretive Statements Sinus rhythm Minimal ST depression, inferior leads Electronically Signed On 02-20-2025 18:43:46 PST by Albino Pulido Please click the below link to view image of tracing.
--- NOTE | 2025-02-14 10:14 | ECG ---
[facility] Test Date: 2025-02-13 Test Time: 18:28:30 Pat Name: ANA KO Department: Room: 0206T A Gender: F Designer/Writer: WAN : 1960 Requested By: FALGUNI KO* Order Number: [id number] Reading MD: Albino Puldio Measurements Intervals [place] Rate: 107 P: 69 LA: 177 QRS: 68 QRSD: 93 T: 56 QT: 327 QTc: 437 Interpretive Statements Sinus tachycardia Minimal ST depression, diffuse leads Electronically Signed On 02-20-2025 18:43:21 PST by Albino Pulido Please click the below link to view image of tracing.
[2025-02-14] MEDS: IOHEXOL 350 MG/ML 100ML IJ ONE (12:53)
--- NOTE | 2025-02-14 15:50 | DVHPNRES ---
Progress Note Date Seen: Feb 14, 2025 Resident Creating Document: JEAN-PIERRE CODY RESIDENT Medical Necessity Reason Pt with a Central, PICC or Fol: No Subjective Review of Systems Patient is a 64-year-old female with past medical history of ljv-imlthcl-dkaowfkjk type 2 diabetes mellitus, hypertension who came to the hospital with chief complaints of 5/10 chest pain which she states is tight pressure-like in nature and comes and goes associated with neck stiffness and radiating to the right arm. 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 She states it started when she was shoveling in the backyard. She states it started at noon when she checked her blood pressure at home it was 150/90. on arrival to the ED patient's blood pressure was 197/95. patient states she took lisinopril 20 mg before coming to the ED. Which did not improve her blood pressure. Patient denies any shortness of breath, nausea, vomiting, blurring of vision, dizziness, sick contacts, travel. Patient also states she takes blood pressure medication at night every day instead of morning. Past surgical history: Denies Family history: Reviewed, noncontributory Personal history: Smoke 14 years ago, drinks occasionally, denies drug use, Medication history: Glipizide, omeprazole, baclofen, atorvastatin, lisinopril PCP: Dr. Velasquez Lives with: Family Code status: Full code 02/14/2025: patient seen at bedside. Patient denies any chest pain today, denies any shortness of breath, nausea, vomiting, diarrhea, palpitations. cardiology consulted, stress test to be done tomorrow. Objective vital signs Vital Sign Date Time Temp Pulse Resp B/P (MAP) Pulse Ox O2 Delivery O2 Flow Rate FiO2 02/14/25 13:00 98.5 89 17 129/72 (91) 95 98.5 02/14/25 08:00 Room Air* 0 21 Total Intake and Output 02/13/25 02/13/25 02/14/25 15:00 23:00 07:00 Intake Total 100 ml Balance 100 ml medications Current Medications Medications Dose Ordered Sig/Wilma Route Start Time Stop Time Status Last Admin Dose Admin Ondansetron HCl 4 mg Q4HP PRN IV 02/13/25 21:00 Enoxaparin Sodium 40 mg DAILY SC 02/13/25 21:00 02/19/25 10:22 12/5/25 09:21 40 MG Insulin Glargine 15 units QAM SC 02/14/25 07:00 02/14/25 06:00 15 UNITS Diagnostic Test (Pha) 1 strip ACHS 02/13/25 22:00 02/14/25 11:35 1 STRIP Insulin Human Regular ACHS SC 02/13/25 22:00 02/14/25 11:39 4 UNITS Dextrose 50 ml UD PRN IV 02/13/25 21:15 Pantoprazole Sodium 40 mg DAILY@0600 PO 02/14/25 06:00 02/14/25 05:56 40 MG Ergocalciferol 50,000 unit Q7D PO 02/14/25 10:00 02/14/25 09:18 50,000 UNIT Acetaminophen 650 mg Q6HP PRN PO 02/14/25 02:15 02/14/25 09:25 650 MG Lisinopril 20 mg DAILY PO 02/14/25 10:00 02/14/25 09:19 20 MG Atorvastatin Calcium 40 mg HS PO 02/14/25 22:00 Examination General: Patient alert and oriented in person, place and time. Patient following commands. HEENT: Normocephalic, atraumatic, moist mucous membranes Respiratory/pulmonary: Clear lungs bilaterally, vesicular murmurs present in almost all lung robertson, no associated crackles or wheezes. Cardiovascular: Normal heart sounds S1 and S2 with no associated murmurs Abdomen: Abdomen nondistended, there is no pain to palpation in any of the abdominal quadrants, no palpable masses. Extremities: There is no peripheral edema present at the lower extremities. Peripheral Pulses: 3+ Radial (R). 3+ Radial (L). 3+ Dorsalis pedis (R). 3+ Dorsalis pedis(L) Skin: No rashes or pruritus, there is no sacral edema present at this time. Neurological: Intact cranial nerves with no focal neurologic deficits laboratory and microbiology Laboratory Tests 02/14/25 06:56 Test 02/14/25 06:56 Range/Units Serum Glucose 165 H 74-106 mg/dL Problem List/Assessment/Plan Problem List/Assessment/Plan Chest pain rule out ACS NSTEMI likely type 2 Hypertensive Emergency Hypertensive heart disease Dyslipidemia EKG: No ST elevation, minimal ST depression in inferior leads Troponin: 40s - cardiology consulted - possible stress test to be done Echocardiography ordered Aspirin loading dose given Atorvastatin Lisinopril CXR: No abnormality detected HEART score: 4 points (moderate score) Uncontrolled type 2 diabetes mellitus [id number]-0.2 Insulin Lantus Mild insulin sliding scale GI prophylaxis: Pantoprazole DVT prophylaxis: Lovenox Diet: Cardiac Goals of care addressed with the patient for more than 27 minutes: Full code status Case discussed with Dr. Rivera , patient and nurse Plan discussed with: Patient My Orders My Orders Orders - JEAN-PIERRE CODY Procedure Category Date Status Time * Cardiology Consult CONS 02/14/25 Transmitted 14:03 Visit Coding STANDARD RES Billing Provider: ALEXSANDRA RIVERA MD Date of Service if different f: Feb 14, 2025 Common Visit Codes: [id number] INP/OBS CARE(HIGH) JEAN-PIERRE CODY Feb 14, 2025 15:50
--- NOTE | 2025-02-14 16:29 | DVHINCON2 ---
Date Seen: Feb 14, 2025 Referring Physician MD Emma resident Reason for Consultation Chest pain History of Present Illness This is a 64-year-old female patient who presents to emergency room with chief complaint of chest pain. The patient reports that the chest pain began yesterday at approximately 12:00 p.m. while she was doing yard work. She describes the pain as unprovoked, intermittent, pressure-like in nature, and substernal without any radiation. Associated symptoms include a right stiff neck. She decided to come to the emergency room for further evaluation. Initial twelve lead electrocardiogram revealed sinus tachycardia without any significant ST segment changes. Initial troponin level of 42ng/L with flat trend thereafter. Significant past medical history includes hypertension, dyslipidemia, and type 2 diabetes mellitus. The patient denies any previous cardiac workup in the past. Of note, the patient came in with blood pressure readings as high as 197/95. She reports compliance with her antihypertensive medications at home. Past Medical History Past medical history reviewed. No other significant than mentioned above. Past Surgical History Family History: Patient reports no known family medical history. Family History Family history reviewed. Social History Patient has a seven pack-year history, quit smoking approximately 16 years ago Denies any illicit drug use Denies any alcohol use Allergies: Coded Allergies: NO KNOWN ALLERGIES (Unverified , 08/26/10) Home Meds Reported Medications [Omeprazole] No Conflict Check 08/26/10 Gemfibrozil (Gemfibrozil) Pow 08/26/10 [Metformin] No Conflict Check 08/26/10 Home Meds Home medications reviewed. Current Medications Current Medications Medications (Trade) Dose Ordered Sig/Wilma Route PRN Reason Start Time Stop Time Status Last Admin Ondansetron HCl (Zofran) 4 mg Q4HP PRN IV NAUSEA / VOMITING 02/13/25 21:00 Enoxaparin Sodium (Lovenox) 40 mg DAILY SC 02/13/25 21:00 02/19/25 10:22 02/14/25 09:21 Insulin Glargine (Lantus) 15 units QAM SC 02/14/25 07:00 02/14/25 06:00 Diagnostic Test (Pha) (Accu-Chek Comfort Curve T) 1 strip ACHS 02/13/25 22:00 02/14/25 11:35 Insulin Human Regular (InsuLIN R) ACHS SC 02/13/25 22:00 02/14/25 11:39 Dextrose 50 ml UD PRN IV Blood Sugar LESS THAN 60 02/13/25 21:15 Atorvastatin Calcium (Lipitor) 20 mg HS PO 02/18/25 22:00 02/14/25 11:47 DC Pantoprazole Sodium (Protonix Tablet) 40 mg DAILY@0600 PO 02/14/25 06:00 02/14/25 05:56 Ergocalciferol (Vitamin D 50,000 Unit) 50,000 unit Q7D PO 02/14/25 10:00 02/14/25 09:18 Acetaminophen (Tylenol Tablet) 650 mg Q6HP PRN PO MILD PAIN (1-3 PAIN SCALE) 02/14/25 02:15 02/14/25 09:25 Lisinopril (Zestril Tablet) 20 mg DAILY PO 02/14/25 10:00 02/14/25 09:19 Atorvastatin Calcium (Lipitor) 40 mg HS PO 02/14/25 22:00 Review of Systems Constitutional: No symptom reported Ears, Nose, & Throat: No symptom reported Eyes: No symptom reported Neurological: No symptoms reported Pulmonary/Respiratory: No symptoms reported Cardiovascular: Chest pain Gastrointestinal: No symptom reported Genitourinary: No symptom reported Musculoskeletal: No symptom reported Skin: No symptom reported Psychiatric: No symptom reported Endocrine: No symptom reported Hematologic/Lymphatic: No symptom reported Vital Signs Vital Signs Date Time Temp Pulse Resp B/P (MAP) Pulse Ox O2 Delivery O2 Flow Rate FiO2 02/14/25 13:00 98.5 89 17 129/72 (91) 95 98.5 02/14/25 08:00 Room Air* 0 21 Physical Exam General Appearance: Cooperative. Well-developed. Well-nourished. No acute distress. Pulmonary/Respiratory: Clear, bilateral breaths sounds. Cardiovascular/Chest: Regular rate and rhythm. Peripheral Pulses: 2+ Radial (R). 2+ Radial (L). 2+ Pedal (R). 2+ Pedal (L) Abdominal Exam: Normal bowel sounds. Ankle Exam: Negative ankle edema Lower extremities: Negative lower extremity edema Neuro/Mental Status: A/OX4, coherent. Thoughts/Psych: Normal thought pattern. Appropriate mood and affect. Good judgment and insight. Appearance: No acute distress. Skin Exam: Normal inspection. Normal color. Warm and dry. Labs/Diagnostic Data Labs Test 02/14/25 11:19 02/14/25 06:56 02/14/25 03:00 02/13/25 21:26 Range/Units POC Glucose 224 H 70-106 mg/dl White Blood Count 6.9 4.4-10.8 10^3/uL Red Blood Count 4.21 4.0-5.20 10^6/uL Hemoglobin 12.8 12.2-16.2 g/dL Hematocrit 38.6 36.0-46.0 % Mean Corpuscular Volume 91.5 80.0-100.0 fL Mean Corpuscular Hemoglobin 30.5 28.0-32.0 pg Mean Corpuscular Hemoglobin Concent 33.3 32.0-36.0 g/dL Red Cell Distribution Width 12.7 11.8-14.3 % Platelet Count 254 140-450 10^3/uL Mean Platelet Volume 8.3 6.9-10.8 fL Neutrophils (%) (Auto) 61.8 37.0-80.0 % Lymphocytes (%) (Auto) 28.1 10.0-50.0 % Monocytes (%) (Auto) 7.7 0.0-12.0 % Eosinophils (%) (Auto) 1.8 0.0-7.0 % Basophils (%) (Auto) 0.6 0.0-2.0 % Neutrophils # (Auto) 4.3 1.6-8.6 10 ^3/uL Lymphocytes # (Auto) 1.9 0.4-5.4 10 ^3/uL Monocytes # (Auto) 0.5 0-1.3 10 ^3/uL Eosinophils # (Auto) 0.1 0-0.8 10 ^3/uL Basophils # (Auto) 0 0-0.2 10 ^3/uL Nucleated Red Blood Cells 0.1 % Prothrombin Time 10.4 9.3-11.8 sec Prothrombin Time INR 0.98 0.9-1.15 Activated Partial Thromboplast Time 29.3 24.5-34.5 SEC Sodium Level 140 136-145 mmol/L Potassium Level 3.5 3.5-5.1 mmol/L Chloride Level 102 98-107 mmol/L Carbon Dioxide Level 28 20-31 mmol/L Anion Gap 10 5-15 Blood Urea Nitrogen 13 9-23 mg/dL Creatinine 0.64 # 0.550-1.02 mg/dL Glomerular Filtration Rate Calc 99 >90 mL/min BUN/Creatinine Ratio 20.3 H 10.0-20.0 Serum Glucose 165 H 74-106 mg/dL Hemoglobin A1c 8.3 H <5.7 % A1C Calcium Level 9.5 8.7-10.4 mg/dL Total Bilirubin 0.4 0.2-1.0 mg/dL Direct Bilirubin < 0.1 <0.3 mg/dL Aspartate Amino Transferase (AST) 20 13-40 U/L Alanine Aminotransferase (ALT) 23 7-40 U/L Alkaline Phosphatase 81 46-116 U/L Total Protein 7.1 5.7-8.2 g/dL Albumin 4.5 3.2-4.8 g/dL Triglycerides Level 286 H < 150 mg/dL Cholesterol Level 180 < 200 mg/dL LDL Cholesterol 92 < 100 mg/dL HDL Cholesterol 38 L 40-59 mg/dL Urine Color Light-yellow Yellow Urine Clarity Clear Clear Urine pH 5.5 5.0-9.0 Urine Specific [place] 1.014 1.001-1.035 Urine Protein Negative Negative Urine Ketones Negative Negative Urine Blood Negative Negative /uL Urine Nitrite Negative Negative Urine Bilirubin Negative Negative Urine Urobilinogen Normal Negative mg/dL Urine Leukocyte Esterase Negative Negative /uL Urine RBC None seen 0 - 4 /hpf Urine Microscopic WBC 2 0-5 /HPF Urine Squamous Epithelial Cells Few <5 /hpf Urine Bacteria None seen None Seen /hpf Urine Hyaline Casts Few 0 - 2 /lpf Urine Mucus Few None Seen Urine Glucose Trace Normal mg/dL Urine Opiates Screen Negative NEGATIVE Urine Fentanyl Screen Negative NEGATIVE Urine Barbiturates Screen Negative NEGATIVE Urine Phencyclidine Screen Negative NEGATIVE Urine Amphetamines Screen Negative NEGATIVE Urine Benzodiazepines Screen Negative NEGATIVE Urine Cocaine Screen Negative NEGATIVE Urine Cannabinoids Screen Negative NEGATIVE Troponin I High Sensitivity 49 *H </=34 ng/L Test 02/13/25 18:29 Range/Units Vitamin B12 Level 503 211-911 pg/mL Thyroid Stimulating Hormone (TSH) 1.70 0.55-4.78 uIU/mL Assessment Chest pain, rule out coronary ischemia Hypertensive urgency Rule out structural heart disease Dyslipidemia Type 2 diabetes mellitus, uncontrolled (A1c 8.3%) History of tobacco use Plan/Recommendation We will continue with the following plan/recommendations (Dr. Pulido): * Transthoracic echocardiogram to evaluate cardiac function * Chest pain protocol * HEART score: 4 points (moderate score) * Single antiplatelet therapy and lipid-lowering agent * Close cardiac surveillance * Nuclear stress test Given the patient's clinical presentation and comorbidities, we will recommend for the patient to undergo a stress test. The patient was offered a treadmill stress test, but refused due to fear of falling off of the treadmill. A nuclear stress test was then offered for which patient accepted. We will proceed with scheduling the patient to undergo a nuclear stress test. In the meantime, continue with single antiplatelet therapy and lipid-lowering agent as well as blood pressure control. Continue with close cardiac surveillance and notify cardiology team immediately for any ECG changes. Thank you for allowing us to care for this patient. Please call with any questions or concerns. Critical care time spent: 44 minutes This medical document was created using an electronic medical record system with voice recognition software and computerized dictation system. Although this document has been carefully reviewed, there might still be some phonetic and typographical errors. Occasional wrong-word or ``sound-alike substitutions may have occurred due to the inherent limitations of voice recognition software. These areas are purely typographical due to imperfections of the software programs and do not reflect any compromise in the patient's medical care. Please read the chart carefully and recognize, using context, where these substitutions have occurred. Plan discussed with: Patient NYHA Physical activity limitations: NA Date of Service: Feb 14, 2025 Billing Provider: GEE ROSALES Cardiology Common Codes: [id number] INP/OBS CARE (High) Cardiology Consultation Codes: [id number] CONSULT <45MIN GEE ROSALES Feb 14, 2025 16:29
[2025-02-14] MEDS: ATORVASTATIN 20 MG TAB PO SCH (21:35)
[2025-02-15] VITALS (8 sets, daily range): BP systolic 106–136; BP diastolic 66–83; PULSE 78–98; RESP 17–19; TEMP 97–98.2; O2SAT 96–99
[2025-02-15 06:38] LABS: Hematocrit 38.6 % (36.0-46.0); Hemoglobin 13.1 g/dL (12.2-16.2); Mean Corpuscular Hemoglobin 31.1 pg (28.0-32.0); Mean Corpuscular Volume 91.4 fL (80.0-100.0); Nucleated Red Blood Cells % 0.1 %
[2025-02-15 06:57] LABS: Alanine Aminotransferase 20 U/L (7-40); Albumin 4.2 g/dL (3.2-4.8); Alkaline Phosphatase 75 U/L (46-116); Anion Gap 9 (5-15); BUN/Creatinine Ratio 31.3 (10.0-20.0); Bilirubin, Total 0.6 mg/dL (0.2-1.0); Blood Urea Nitrogen 21 mg/dL (9-23); Calcium 9.3 mg/dL (8.7-10.4); Carbon Dioxide 27 mmol/L (20-31); Chloride 104 mmol/L (98-107); Potassium 4.5 mmol/L (3.5-5.1); Sodium 140 mmol/L (136-145); Total Protein 6.6 g/dL (5.7-8.2)
[2025-02-15 07:02] LABS: Glucose 171 mg/dL (74-106)
[2025-02-15] MEDS: ASPirin-EC 81 mg tab PO SCH (09:33)
--- NOTE | 2025-02-15 13:21 | DVHSR ---
APPROVED REPORT EXAM: Two-dimensional and M-mode echocardiogram with Doppler and color Doppler. Blood Pressure: 127/77 mmHg INDICATION NSTEMI RISK FACTORS Height: 4'8, Weight: 113 DIMENSIONS LVDd 4.1 (3.8-5.7cm) LA (2D) 3.5 (1.9-4.0cm) Aortic Root 2.8 (2.0-3.7cm) LVDs 2.7 (2.5-4.0cm) LA (MM) (1.9-4.0cm) Aortic Cusp Exc 1.6 (1.5-2.0cm) EF (%) 65.0 (55-70%) Rt. Atrium 2.5 (1.9-4.0cm) Asc. Aorta cm IVSd 0.9 (0.7-1.1cm) RV (D) 3.4 (1.8-2.4cm) PWd 0.9 (0.7-1.1cm) Mitral Valve Mitral Mitral Stenosis E wave 0.57m/s MV Mean GR. 2mmHg A wave 1.35m/s MV Peak GR. 11mmHg E/A ratio 0.4 2D MVA cm2 DECEL Time 178ms PRESS 1/2 Time ms Aortic Valve Aortic Valve Aortic Stenosis V1 1.65m/s AO Mean GR. 7mmHg V2 1.52m/s AO Peak GR. 9mmHg LVOT Diameter 1.7 (1.8-2.4cm) Doppler PATRIA 2.46cm2 Pulmonic Valve V2 0.92m/s Tricuspid Valve TR Velocity 1.85m/s RVSP 17mmHg Conclusion 1) Normal right and left ventricle systolic function with estimated ejection fraction of 60-65%. normal LV wall motion. 2) Mild aortic, tricuspid and mitral regurgitation 3) No pericardial effusion
--- NOTE | 2025-02-15 13:33 | DVHPN2 ---
Consult Progress Note Subjective Patient reports: No new complaints Review of Systems: CVS:Normal (Deies CP, Palpitaitons, SOB) Objective vital signs Vital Sign Date Time Temp Pulse Resp B/P (MAP) Pulse Ox O2 Delivery O2 Flow Rate FiO2 02/15/25 12:56 98.1 85 17 136/83 (100) 96 98.1 02/15/25 08:00 Room Air* 0 21 Total Intake and Output 02/14/25 02/14/25 02/15/25 15:00 23:00 07:00 Intake Total 950 ml 400 ml Balance 950 ml 400 ml medications Current Medications Medications Dose Ordered Sig/Wilma Route Start Time Stop Time Status Last Admin Dose Admin Ondansetron HCl 4 mg Q4HP PRN IV 02/13/25 21:00 Enoxaparin Sodium 40 mg DAILY SC 02/13/25 21:00 02/19/25 10:22 02/14/25 09:21 40 MG Insulin Glargine 15 units QAM SC 02/14/25 07:00 02/15/25 06:16 15 UNITS Diagnostic Test (Pha) 1 strip ACHS 02/13/25 22:00 02/15/25 11:14 1 STRIP Insulin Human Regular ACHS SC 02/13/25 22:00 02/15/25 11:14 4 UNITS Dextrose 50 ml UD PRN IV 02/13/25 21:15 Pantoprazole Sodium 40 mg DAILY@0600 PO 02/14/25 06:00 02/15/25 05:13 40 MG Ergocalciferol 50,000 unit Q7D PO 02/14/25 10:00 02/14/25 09:18 50,000 UNIT Acetaminophen 650 mg Q6HP PRN PO 02/14/25 02:15 02/14/25 09:25 650 MG Lisinopril 20 mg DAILY PO 02/14/25 10:00 02/15/25 09:33 20 MG Atorvastatin Calcium 40 mg HS PO 02/14/25 22:00 02/14/25 21:35 40 MG Aspirin 81 mg DAILY PO 02/15/25 10:00 02/15/25 09:33 81 MG Examination: CVS:Normal (Telemetry reviewed symptoms sinus rhythm at 99 beats per minute) laboratory and microbiology Laboratory Tests 02/15/25 05:15 Test 02/15/25 05:15 Range/Units Serum Glucose 171 H 74-106 mg/dL Problem List/Assessment/Plan Problem List/Assessment/Plan Chest pain, rule out coronary ischemia Hypertensive urgency Rule out structural heart disease Dyslipidemia Type 2 diabetes mellitus, uncontrolled (A1c 8.3%) History of tobacco use Plan/Recommendation We will continue with the following plan/recommendations (): * Transthoracic echocardiogram with normal LVEF (60-65%). Mild aortic tricuspid and mitral valve regurg. * Chest pain protocol * HEART score: 4 points (moderate score) * Single antiplatelet therapy and lipid-lowering agent * Close cardiac surveillance * Nuclear stress test Given the patient's clinical presentation and comorbidities, we will recommend for the patient to undergo a stress test. The patient was offered a treadmill stress test, but refused due to fear of falling off of the treadmill. A nuclear stress test was then offered for which patient accepted. We will proceed with scheduling the patient to undergo a nuclear stress test. In the meantime, continue with single antiplatelet therapy and lipid-lowering agent as well as blood pressure control. Continue with close cardiac surveillance and notify cardiology team immediately for any ECG changes. Thank you for allowing us to care for this patient. Please call with any questions or concerns. Critical care time spent: 36 minutes This medical document was created using an electronic medical record system with voice recognition software and computerized dictation system. Although this document has been carefully reviewed, there might still be some phonetic and typographical errors. Occasional wrong-word or ``sound-alike substitutions may have occurred due to the inherent limitations of voice recognition software. These areas are purely typographical due to imperfections of the software programs and do not reflect any compromise in the patient's medical care. Please read the chart carefully and recognize, using context, where these substitutions have occurred. Thank you for allowing me to participate in the management of this patient. The treatment plan was discussed with and agreed upon by patient/family including requesting consultants and ordering of imaging/procedures. Plan discussed with: Patient Date of Service: Feb 15, 2025 Billing Provider: REA GARCÍA Common Visit Codes: [id number] INP/OBS CARE(HIGH) REA GARCÍA Feb 15, 2025 13:33
--- NOTE | 2025-02-15 17:09 | DVHPN2 ---
Subjective Patient is currently denies any chest pain, scheduled for Cardiolite stress test on Monday. Changes from previous H/P or p: No Changes Cardiovascular: Chest Pain Objective Vitals Vital Signs Date Time Temp Pulse Resp B/P (MAP) Pulse Ox O2 Delivery O2 Flow Rate FiO2 02/15/25 16:55 97.0 83 17 122/74 (90) 96 97.0 02/15/25 08:00 Room Air* 0 21 Intake/Output Intake and Output 02/15/25 06:59 Intake Total 1350 ml Balance 1350 ml Intake Oral 1350 ml # Voids 5 Exam HEENT pupils are reactive Neck is supple CV is S1-S2 regular rate and rhythm Respiratory diminished breath sounds bases GI positive bowel sound Extremity no edema MOLD HOISTER no motor deficit Medications Current Medications Medications Dose Ordered Sig/Wilma Route Start Time Stop Time Status Last Admin Dose Admin Ondansetron HCl 4 mg Q4HP PRN IV 02/13/25 21:00 Enoxaparin Sodium 40 mg DAILY SC 02/13/25 21:00 02/19/25 10:22 02/14/25 09:21 40 MG Insulin Glargine 15 units QAM SC 02/14/25 07:00 02/15/25 06:16 15 UNITS Diagnostic Test (Pha) 1 strip ACHS 02/13/25 22:00 02/15/25 11:14 1 STRIP Insulin Human Regular ACHS SC 02/13/25 22:00 02/15/25 11:14 4 UNITS Dextrose 50 ml UD PRN IV 02/13/25 21:15 Pantoprazole Sodium 40 mg DAILY@0600 PO 02/14/25 06:00 02/15/25 05:13 40 MG Ergocalciferol 50,000 unit Q7D PO 02/14/25 10:00 02/14/25 09:18 50,000 UNIT Acetaminophen 650 mg Q6HP PRN PO 02/14/25 02:15 02/14/25 09:25 650 MG Lisinopril 20 mg DAILY PO 02/14/25 10:00 02/15/25 09:33 20 MG Atorvastatin Calcium 40 mg HS PO 02/14/25 22:00 02/14/25 21:35 40 MG Aspirin 81 mg DAILY PO 02/15/25 10:00 02/15/25 09:33 81 MG Loratadine 10 mg DAILY PO 02/16/25 10:00 Laboratory Results Laboratory Tests 02/15/25 05:15 Chemistry Test 02/15/25 05:15 Albumin 4.2 g/dL (3.2-4.8) Calcium Level 9.3 mg/dL (8.7-10.4) Total Protein 6.6 g/dL (5.7-8.2) LFT Test 02/15/25 05:15 Alanine Aminotransferase (ALT) 20 U/L (7-40) Alkaline Phosphatase 75 U/L (46-116) Aspartate Amino Transferase (AST) 18 U/L (13-40) Total Bilirubin 0.6 mg/dL (0.2-1.0) Urinalysis Test 02/14/25 03:00 Urine Color Light-yellow (Yellow) Urine Clarity Clear (Clear) Urine pH 5.5 (5.0-9.0) Urine Specific [place] 1.014 (1.001-1.035) Urine Protein Negative (Negative) Urine Ketones Negative (Negative) Urine Blood Negative /uL (Negative) Urine Nitrite Negative (Negative) Urine Bilirubin Negative (Negative) Urine Urobilinogen Normal mg/dL (Negative) Urine Leukocyte Esterase Negative /uL (Negative) Urine RBC None seen /hpf (0 - 4) Urine Microscopic WBC 2 /HPF (0-5) Urine Squamous Epithelial Cells Few /hpf (<5) Urine Bacteria None seen /hpf (None Seen) Urine Hyaline Casts Few /lpf (0 - 2) Urine Mucus Few (None Seen) Urine Glucose Trace mg/dL (Normal) Assessment/Plan Assessment/Plan 64-year-old female with a known history of diabetes mellitus type 2, hypertension, dyslipidemia presented to the hospital with chest pain found to have 1. Chest pain with a mildly elevated troponin rule out acute NM 2. Diabetes mellitus type 2 3. Hypertension 4. Dyslipidemia -continue aspirin, statin, Cardiolite stress test. Plan discussed with: Patient My Orders Orders - SLICK FOWLER MD Procedure Category Date Status Time Loratadine Tablet PHA 02/16/25 In Process (Claritin Tablet) 10:00 Date of Service: Feb 15, 2025 Billing Provider: SLICK FOWLER MD Common Visit Codes: [id number] INP/OBS CARE(HIGH) SLICK FOWLER MD Feb 15, 2025 17:09
[2025-02-16] VITALS (8 sets, daily range): BP systolic 100–142; BP diastolic 63–76; PULSE 72–89; RESP 17–18; TEMP 97.7–98.7; O2SAT 96–100
--- NOTE | 2025-02-16 08:36 | DVHPNRES ---
Progress Note Date Seen: Feb 16, 2025 Resident Creating Document: JEAN-PIERRE CODY RESIDENT Medical Necessity Reason Pt with a Central, PICC or Fol: No Subjective Review of Systems Patient is a 64-year-old female with past medical history of [id number] type 2 diabetes mellitus, hypertension who came to the hospital with chief complaints of 5/10 chest pain which she states is tight pressure-like in nature and comes and goes associated with neck stiffness and radiating to the right arm. 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 She states it started when she was shoveling in the backyard. She states it started at noon when she checked her blood pressure at home it was 150/90. on arrival to the ED patient's blood pressure was 197/95. patient states she took lisinopril 20 mg before coming to the ED. Which did not improve her blood pressure. Patient denies any shortness of breath, nausea, vomiting, blurring of vision, dizziness, sick contacts, travel. Patient also states she takes blood pressure medication at night every day instead of morning. Past surgical history: Denies Family history: Reviewed, noncontributory Personal history: Smoke 14 years ago, drinks occasionally, denies drug use, Medication history: Glipizide, omeprazole, baclofen, atorvastatin, lisinopril PCP: Dr. Velasquez Lives with: Family Code status: Full code 02/14/2025: patient seen at bedside. Patient denies any chest pain today, denies any shortness of breath, nausea, vomiting, diarrhea, palpitations. cardiology consulted, stress test to be done tomorrow. 02/16/25: Patient seen at bedside. Patient denies any chest pain, shortness of breath, no acute symptoms. Patient is to have cardiology stress test done on Monday. Cardiology on board. Objective vital signs Vital Sign Date Time Temp Pulse Resp B/P (MAP) Pulse Ox O2 Delivery O2 Flow Rate FiO2 02/16/25 08:00 Room Air* 0 21 02/16/25 05:00 98.1 81 17 105/71 (82) 99 98.1 Total Intake and Output 02/15/25 02/15/25 02/16/25 15:00 23:00 07:00 Intake Total 850 ml 200 ml Balance 850 ml 200 ml medications Current Medications Medications Dose Ordered Sig/Wilma Route Start Time Stop Time Status Last Admin Dose Admin Ondansetron HCl 4 mg Q4HP PRN IV 02/13/25 21:00 Enoxaparin Sodium 40 mg DAILY SC 02/13/25 21:00 02/19/25 10:22 02/14/25 09:21 40 MG Insulin Glargine 15 units QAM SC 02/14/25 07:00 02/16/25 06:26 15 UNITS Diagnostic Test (Pha) 1 strip ACHS 02/13/25 22:00 02/16/25 06:17 1 STRIP Insulin Human Regular ACHS SC 02/13/25 22:00 02/16/25 06:25 2 UNITS Dextrose 50 ml UD PRN IV 02/13/25 21:15 Pantoprazole Sodium 40 mg DAILY@0600 PO 02/14/25 06:00 02/16/25 06:16 40 MG Ergocalciferol 50,000 unit Q7D PO 02/14/25 10:00 02/14/25 09:18 50,000 UNIT Acetaminophen 650 mg Q6HP PRN PO 02/14/25 02:15 02/14/25 09:25 650 MG Lisinopril 20 mg DAILY PO 02/14/25 10:00 02/15/25 09:33 20 MG Atorvastatin Calcium 40 mg HS PO 02/14/25 22:00 02/15/25 21:51 40 MG Aspirin 81 mg DAILY PO 02/15/25 10:00 02/15/25 09:33 81 MG Loratadine 10 mg DAILY PO 02/16/25 10:00 Examination General: Patient alert and oriented in person, place and time. Patient following commands. HEENT: Normocephalic, atraumatic, moist mucous membranes Respiratory/pulmonary: Clear lungs bilaterally, vesicular murmurs present in almost all lung robertson, no associated crackles or wheezes. Cardiovascular: Normal heart sounds S1 and S2 with no associated murmurs Abdomen: Abdomen nondistended, there is no pain to palpation in any of the abdominal quadrants, no palpable masses. Extremities: There is no peripheral edema present at the lower extremities. Peripheral Pulses: 3+ Radial (R). 3+ Radial (L). 3+ Dorsalis pedis (R). 3+ Dorsalis pedis(L) Skin: No rashes or pruritus, there is no sacral edema present at this time. Neurological: Intact cranial nerves with no focal neurologic deficit laboratory and microbiology Laboratory Tests 02/15/25 05:15 Test 02/15/25 05:15 Range/Units Serum Glucose 171 H 74-106 mg/dL Problem List/Assessment/Plan Problem List/Assessment/Plan Chest pain rule out ACS NSTEMI likely type 2 Hypertensive Emergency Hypertensive heart disease Dyslipidemia EKG: No ST elevation, minimal ST depression in inferior leads Troponin: 40s - cardiology consulted -Cardiolite stress test to be done on Monday Echocardiography ordered Aspirin loading dose given Atorvastatin Lisinopril CXR: No abnormality detected HEART score: 4 points (moderate score) Uncontrolled type 2 diabetes mellitus [id number] Insulin Lantus Mild insulin sliding scale GI prophylaxis: Pantoprazole DVT prophylaxis: Lovenox Diet: Cardiac Goals of care addressed with the patient for more than 27 minutes: Full code status Case discussed with Dr. Mcadams , patient and nurse Plan discussed with: Patient Visit Coding STANDARD RES Billing Provider: ANSELMO MCADAMS MD Date of Service if different f: Feb 16, 2025 Common Visit Codes: [id number] INP/OBS CARE(HIGH) JEAN-PIERRE CODY RESIDENT Feb 16, 2025 08:36
[2025-02-16] MEDS: LORATADINE 10 MG TAB PO SCH (09:54)
--- NOTE | 2025-02-16 12:27 | DVHPN2 ---
Consult Progress Note Subjective Patient reports: No new complaints Review of Systems: CVS:Normal (Denies CP, Palpitiatons, SOB) Objective vital signs Vital Sign Date Time Temp Pulse Resp B/P (MAP) Pulse Ox O2 Delivery O2 Flow Rate FiO2 02/16/25 09:56 142/76 02/16/25 09:00 98.1 72 17 100 98.1 02/16/25 08:00 Room Air* 0 21 Total Intake and Output 02/15/25 02/15/25 02/16/25 15:00 23:00 07:00 Intake Total 850 ml 200 ml Balance 850 ml 200 ml medications Current Medications Medications Dose Ordered Sig/Wilma Route Start Time Stop Time Status Last Admin Dose Admin Ondansetron HCl 4 mg Q4HP PRN IV 02/13/25 21:00 Enoxaparin Sodium 40 mg DAILY SC 02/13/25 21:00 02/19/25 10:22 02/14/25 09:21 40 MG Insulin Glargine 15 units QAM SC 02/14/25 07:00 02/16/25 06:26 15 UNITS Diagnostic Test (Pha) 1 strip ACHS 02/13/25 22:00 02/16/25 11:47 1 STRIP Insulin Human Regular ACHS SC 02/13/25 22:00 02/16/25 11:53 2 UNITS Dextrose 50 ml UD PRN IV 02/13/25 21:15 Pantoprazole Sodium 40 mg DAILY@0600 PO 02/14/25 06:00 02/16/25 06:16 40 MG Ergocalciferol 50,000 unit Q7D PO 02/14/25 10:00 02/14/25 09:18 50,000 UNIT Acetaminophen 650 mg Q6HP PRN PO 02/14/25 02:15 02/14/25 09:25 650 MG Lisinopril 20 mg DAILY PO 02/14/25 10:00 02/16/25 09:56 20 MG Atorvastatin Calcium 40 mg HS PO 02/14/25 22:00 02/15/25 21:51 40 MG Aspirin 81 mg DAILY PO 02/15/25 10:00 02/16/25 09:54 81 MG Loratadine 10 mg DAILY PO 02/16/25 10:00 02/16/25 09:54 10 MG Examination: CVS:Normal (Telemetry reviewed consistent with sinus rhythm at 80 beats per minute, no overnight events noted.) laboratory and microbiology Laboratory Tests 02/15/25 05:15 Test 02/15/25 05:15 Range/Units Serum Glucose 171 H 74-106 mg/dL Problem List/Assessment/Plan Problem List/Assessment/Plan Chest pain, rule out coronary ischemia Hypertensive urgency Rule out structural heart disease Dyslipidemia Type 2 diabetes mellitus, uncontrolled (A1c 8.3%) History of tobacco use Plan/Recommendation We will continue with the following plan/recommendations (): * Transthoracic echocardiogram with normal LVEF (60-65%). Mild aortic tricuspid and mitral valve regurg. * Chest pain protocol * HEART score: 4 points (moderate score) * Single antiplatelet therapy and lipid-lowering agent * Close cardiac surveillance * Nuclear stress test Given the patient's clinical presentation and comorbidities, we will recommend for the patient to undergo a stress test. The patient was offered a treadmill stress test, but refused due to fear of falling off of the treadmill. Plan nuclear stress test in a.m., NPO after midnight. In the meantime, continue with single antiplatelet therapy and lipid-lowering agent as well as blood pressure control. Continue with close cardiac surveillance and notify cardiology team immediately for any ECG changes. Thank you for allowing us to care for this patient. Please call with any questions or concerns. Critical care time spent: 36 minutes This medical document was created using an electronic medical record system with voice recognition software and computerized dictation system. Although this document has been carefully reviewed, there might still be some phonetic and typographical errors. Occasional wrong-word or ``sound-alike substitutions may have occurred due to the inherent limitations of voice recognition software. These areas are purely typographical due to imperfections of the software programs and do not reflect any compromise in the patient's medical care. Please read the chart carefully and recognize, using context, where these substitutions have occurred. Thank you for allowing me to participate in the management of this patient. The treatment plan was discussed with and agreed upon by patient/family including requesting consultants and ordering of imaging/procedures. Plan discussed with: Patient Date of Service: Feb 16, 2025 Billing Provider: REA GARCÍA Common Visit Codes: [id number] INP/OBS CARE(HIGH), [id number] CARE 30-74 MIN REA GARCÍA Feb 16, 2025 12:27
--- NOTE | 2025-02-16 17:23 | DVHPN2 ---
Subjective Patient is scheduled for Lexiscan stress test on Monday. 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 Medications Current Medications Medications Dose Ordered Sig/Wilma Route Start Time Stop Time Status Last Admin Dose Admin Ondansetron HCl 4 mg Q4HP PRN IV 02/13/25 21:00 Enoxaparin Sodium 40 mg DAILY SC 02/13/25 21:00 02/19/25 10:22 02/14/25 09:21 40 MG Insulin Glargine 15 units QAM SC 02/14/25 07:00 02/16/25 06:26 15 UNITS Diagnostic Test (Pha) 1 strip ACHS 02/13/25 22:00 02/16/25 16:33 1 STRIP Insulin Human Regular ACHS SC 02/13/25 22:00 02/16/25 16:33 2 UNITS Dextrose 50 ml UD PRN IV 02/13/25 21:15 Pantoprazole Sodium 40 mg DAILY@0600 PO 02/14/25 06:00 02/16/25 06:16 40 MG Ergocalciferol 50,000 unit Q7D PO 02/14/25 10:00 02/14/25 09:18 50,000 UNIT Acetaminophen 650 mg Q6HP PRN PO 02/14/25 02:15 02/14/25 09:25 650 MG Lisinopril 20 mg DAILY PO 02/14/25 10:00 02/16/25 09:56 20 MG Atorvastatin Calcium 40 mg HS PO 02/14/25 22:00 02/15/25 21:51 40 MG Aspirin 81 mg DAILY PO 02/15/25 10:00 02/16/25 09:54 81 MG Loratadine 10 mg DAILY PO 02/16/25 10:00 02/16/25 09:54 10 MG Laboratory Results Laboratory Tests 02/15/25 05:15 Urinalysis Test 02/14/25 03:00 Urine Color Light-yellow (Yellow) Urine Clarity Clear (Clear) Urine pH 5.5 (5.0-9.0) Urine Specific [place] 1.014 (1.001-1.035) Urine Protein Negative (Negative) Urine Ketones Negative (Negative) Urine Blood Negative /uL (Negative) Urine Nitrite Negative (Negative) Urine Bilirubin Negative (Negative) Urine Urobilinogen Normal mg/dL (Negative) Urine Leukocyte Esterase Negative /uL (Negative) Urine RBC None seen /hpf (0 - 4) Urine Microscopic WBC 2 /HPF (0-5) Urine Squamous Epithelial Cells Few /hpf (<5) Urine Bacteria None seen /hpf (None Seen) Urine Hyaline Casts Few /lpf (0 - 2) Urine Mucus Few (None Seen) Urine Glucose Trace mg/dL (Normal) Assessment/Plan Assessment/Plan 64-year-old female with a known history of diabetes mellitus type 2, hypertension, dyslipidemia presented to the hospital with chest pain found to have 1. Chest pain with a mildly elevated troponin rule out acute [place] 2. Diabetes mellitus type 2 3. Hypertension 4. Dyslipidemia -continue aspirin, statin, Cardiolite stress test. Plan discussed with: Patient, Other Date of Service: Feb 16, 2025 Billing Provider: SLICK FOWLER MD Common Visit Codes: [id number] INP/OBS CARE(HIGH) SLICK FOWLER MD Feb 16, 2025 17:23
--- NOTE | 2025-02-16 18:34 | DVH ---
CLINICAL HISTORY: Rule out DVT. COMPARISON: None. TECHNIQUE: Compression evaluation and color Doppler evaluation of the deep veins of the right upper extremity was performed. Color flow and spectral waveform analysis was performed. Realtime grayscale and Doppler ultrasound images of the deep venous structures with spectral waveform analysis were obtained. FINDINGS: This examination demonstrates normal compression and phasic flow of the deep veins of the right upper extremity with no evidence for thrombus within the internal jugular, subclavian, axillary, brachial, radial, and ulnar veins. There is superficial thrombus in the cephalic vein near the level of the antecubital fossa. Basilic vein is patent with normal flow and compressibility. IMPRESSION: 1. There is no evidence for DVT in the right upper extremity. 2. Superficial thrombus in the right cephalic vein.
[2025-02-17 01:00] VITALS: BP 100/68; PULSE 89; RESP 18; TEMP 98; O2SAT 97
[2025-02-17 05:00] VITALS: BP 102/69; PULSE 81; RESP 18; TEMP 97.5; O2SAT 96
[2025-02-17 05:58] LABS: Hematocrit 37.0 % (36.0-46.0); Hemoglobin 12.5 g/dL (12.2-16.2); Mean Corpuscular Hemoglobin 30.9 pg (28.0-32.0); Mean Corpuscular Volume 91.4 fL (80.0-100.0); Nucleated Red Blood Cells % 0.0 %
[2025-02-17 06:13] LABS: Anion Gap 10 (5-15); Carbon Dioxide 25 mmol/L (20-31); Chloride 105 mmol/L (98-107); Potassium 4.2 mmol/L (3.5-5.1); Sodium 140 mmol/L (136-145)
[2025-02-17 06:15] LABS: Calcium 9.1 mg/dL (8.7-10.4)
[2025-02-17 06:19] LABS: BUN/Creatinine Ratio 39.0 (10.0-20.0); Blood Urea Nitrogen 23 mg/dL (9-23)
[2025-02-17 06:20] LABS: Glucose 134 mg/dL (74-106)
[2025-02-17 08:00] VITALS: PULSE 80
[2025-02-17 09:00] VITALS: BP 140/80; PULSE 77; RESP 14; TEMP 97.8; O2SAT 95
[2025-02-17] MEDS: REGADENOSON 0.4 MG/5 ML SYRG IV ONE ×2 (09:50)
[2025-02-17 13:00] VITALS: BP 120/84; PULSE 84; RESP 18; TEMP 98; O2SAT 98
--- NOTE | 2025-02-17 13:23 | DVHSR ---
APPROVED REPORT Exam: Nuclear Stress Test BMI: 0 Stress Test Details HR Max Heart Rate (APMHR): 157.512784 bpm Target HR (85% APMHR): 133.418808 bpm BP ECG Stress ECG Conclusion lvef 80% normal perfuiosn scan no ischemia NM EXAM: Myocardial Perfusion REST/STRESS Imaging Protocol: Rest Tc-99m/Stress Tc-99m 1 day Resting Data Rest SPECT myocardial perfusion imaging was performed in supine position 60 minutes following the intravenous injection of 9.8 mCi of Tc-99m Sestamibi. Time of rest injection: 07:55 Date: 02/17/2025 Time of rest imagin:55 Date: 02/17/2025 Administration Route: IV Administration Site: Left Arm Pharmacologic Stress Pharmacologic stress test was performed by injecting Regadenoson 0.4 mg IV push followed by the intravenous injection of 29.1 mCi of Tc-99m Sestamibi. Time of stress injection: 09:55 Date: 02/17/2025 Time of stress imagin:55 Date: 02/17/2025 Administration Route: IV Administration Site: Left Arm Gated Stress SPECT was performed 60 minutes after stress injection. The images were gated to evaluate regional wall motion and calculate left ventricular ejection fraction. Stress only was performed in the Supine position. Nuclear Conclusion Nuclear Findings: negative for ischemia lvef 80% normal perfuiosn scan no ischemia
--- NOTE | 2025-02-17 13:54 | DVHDSRES ---
Discharge Summary Date of Admission Resident Creating Document: JEAN-PIERRE CODY Feb 13, 2025 at 20:52 Date of Discharge: Feb 17, 2025 Admitting Diagnosis Hypertensive Emergency Labs/Diagnostic Data: Laboratory Results Test 02/17/25 11:46 02/17/25 04:44 02/15/25 05:15 02/14/25 06:56 POC Glucose 170 mg/dl (70-106) White Blood Count 5.4 10^3/uL (4.4-10.8) Red Blood Count 4.05 10^6/uL (4.0-5.20) Hemoglobin 12.5 g/dL (12.2-16.2) Hematocrit 37.0 % (36.0-46.0) Mean Corpuscular Volume 91.4 fL (80.0-100.0) Mean Corpuscular Hemoglobin 30.9 pg (28.0-32.0) Mean Corpuscular Hemoglobin Concent 33.8 g/dL (32.0-36.0) Red Cell Distribution Width 12.6 % (11.8-14.3) Platelet Count 251 10^3/uL (140-450) Mean Platelet Volume 8.2 fL (6.9-10.8) Neutrophils (%) (Auto) 55.5 % (37.0-80.0) Lymphocytes (%) (Auto) 31.8 % (10.0-50.0) Monocytes (%) (Auto) 9.0 % (0.0-12.0) Eosinophils (%) (Auto) 3.0 % (0.0-7.0) Basophils (%) (Auto) 0.7 % (0.0-2.0) Neutrophils # (Auto) 3.0 10 ^3/uL (1.6-8.6) Lymphocytes # (Auto) 1.7 10 ^3/uL (0.4-5.4) Monocytes # (Auto) 0.5 10 ^3/uL (0-1.3) Eosinophils # (Auto) 0.2 10 ^3/uL (0-0.8) Basophils # (Auto) 0 10 ^3/uL (0-0.2) Nucleated Red Blood Cells 0.0 % Sodium Level 140 mmol/L (136-145) Potassium Level 4.2 mmol/L (3.5-5.1) Chloride Level 105 mmol/L (98-107) Carbon Dioxide Level 25 mmol/L (20-31) Anion Gap 10 (5-15) Blood Urea Nitrogen 23 mg/dL (9-23) Creatinine 0.59 mg/dL (0.550-1.02) Glomerular Filtration Rate Calc 101 mL/min (>90) BUN/Creatinine Ratio 39.0 (10.0-20.0) Serum Glucose 134 mg/dL (74-106) Calcium Level 9.1 mg/dL (8.7-10.4) Total Bilirubin 0.6 mg/dL (0.2-1.0) Aspartate Amino Transferase (AST) 18 U/L (13-40) Alanine Aminotransferase (ALT) 20 U/L (7-40) Alkaline Phosphatase 75 U/L (46-116) Total Protein 6.6 g/dL (5.7-8.2) Albumin 4.2 g/dL (3.2-4.8) Prothrombin Time 10.4 sec (9.3-11.8) Prothrombin Time INR 0.98 (0.9-1.15) Activated Partial Thromboplast Time 29.3 SEC (24.5-34.5) Hemoglobin A1c 8.3 % A1C (<5.7) Direct Bilirubin < 0.1 mg/dL (<0.3) Triglycerides Level 286 mg/dL (< 150) Cholesterol Level 180 mg/dL (< 200) LDL Cholesterol 92 mg/dL (< 100) HDL Cholesterol 38 mg/dL (40-59) Test 02/14/25 03:00 02/13/25 21:26 02/13/25 18:29 Urine Color Light-yellow (Yellow) Urine Clarity Clear (Clear) Urine pH 5.5 (5.0-9.0) Urine Specific [place] 1.014 (1.001-1.035) Urine Protein Negative (Negative) Urine Ketones Negative (Negative) Urine Blood Negative /uL (Negative) Urine Nitrite Negative (Negative) Urine Bilirubin Negative (Negative) Urine Urobilinogen Normal mg/dL (Negative) Urine Leukocyte Esterase Negative /uL (Negative) Urine RBC None seen /hpf (0 - 4) Urine Microscopic WBC 2 /HPF (0-5) Urine Squamous Epithelial Cells Few /hpf (<5) Urine Bacteria None seen /hpf (None Seen) Urine Hyaline Casts Few /lpf (0 - 2) Urine Mucus Few (None Seen) Urine Glucose Trace mg/dL (Normal) Urine Opiates Screen Negative (NEGATIVE) Urine Fentanyl Screen Negative (NEGATIVE) Urine Barbiturates Screen Negative (NEGATIVE) Urine Phencyclidine Screen Negative (NEGATIVE) Urine Amphetamines Screen Negative (NEGATIVE) Urine Benzodiazepines Screen Negative (NEGATIVE) Urine Cocaine Screen Negative (NEGATIVE) Urine Cannabinoids Screen Negative (NEGATIVE) Troponin I High Sensitivity 49 ng/L (</=34) Vitamin B12 Level 503 pg/mL (211-911) Thyroid Stimulating Hormone (TSH) 1.70 uIU/mL (0.55-4.78) Other Laboratory Tests 02/17/25 04:44 Brief Hx & Hospital Course: Patient is a 64-year-old female with past medical history of [id number] type 2 diabetes mellitus, hypertension who came to the hospital with chief complaints of 5/10 chest pain which she states is tight pressure-like in nature and comes and goes associated with neck stiffness and radiating to the right arm. 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 She states it started when she was shoveling in the backyard. She states it started at noon when she checked her blood pressure at home it was 150/90. on arrival to the ED patient's blood pressure was 197/95. patient states she took lisinopril 20 mg before coming to the ED. Which did not improve her blood pressure. Patient denies any shortness of breath, nausea, vomiting, blurring of vision, dizziness, sick contacts, travel. Patient also states she takes blood pressure medication at night every day instead of morning. Past surgical history: Denies Family history: Reviewed, noncontributory Personal history: Smoke 14 years ago, drinks occasionally, denies drug use, Medication history: Glipizide, omeprazole, baclofen, atorvastatin, lisinopril PCP: Dr. Velasquez Lives with: Family Code status: Full code Brief hospital course: Patient came in to the hospital with chief complaints of chest pain, we ruled out ACS, NSTEMI likely type 2 Hypertensive emergency with elevated tropes. Cardiology was consulted. EKG showed no ST elevation, minimal ST depression in inferior leads .Troponin: 40s .Cardiolite stress test to be done showed negative for ischemia, lvef 80% normal perfuiosn scan. no ischemia. Echocardiography ordered showed Normal right and left ventricle systolic function with estimated ejection fraction of 60-65%. normal LV wall motion. Aspirin loading dose given Atorvastatin. Lisinopril 20 mg. HEART score: 4 points (moderate score). Patient has type 2 diabetes mellitus with HbA1c of 8.2 for which insulin Lantus was given, mild insulin sliding scale was started. Patient is stable for discharge and does not complain of any chest pain, shortness of breath, palpitations. Patient is to follow-up with discharge Clinic in 1 week, patient communicated understanding of discharge plan and has agreed. General: Patient alert and oriented in person, place and time. Patient following commands. HEENT: Normocephalic, atraumatic, moist mucous membranes Respiratory/pulmonary: Clear lungs bilaterally, vesicular murmurs present in almost all lung robertson, no associated crackles or wheezes. Cardiovascular: Normal heart sounds S1 and S2 with no associated murmurs Abdomen: Abdomen nondistended, there is no pain to palpation in any of the abdominal quadrants, no palpable masses. Extremities: There is no peripheral edema present at the lower extremities. Peripheral Pulses: 3+ Radial (R). 3+ Radial (L). 3+ Dorsalis pedis (R). 3+ Dorsalis pedis(L) Skin: No rashes or pruritus, there is no sacral edema present at this time. Neurological: Intact cranial nerves with no focal neurologic deficit Operations or Procedures ORDERING PHYSICIAN: FALGUNI SAMANO PROCEDURE(s): CXR1 - CHEST XRAY 1 VIEW REASON: CHEST TIGHTNESS ORDER NUMBER(s): [id number], ACCESSION NUMBER(s): [id number] CHEST RADIOGRAPH Indication: CHEST TIGHTNESS Technique: Single frontal view of the chest was obtained Comparison: XY CHEST XRAY 1 VIEW on DOS: 08/11/23, XY CHEST PORTABLE on DOS: 05/31/22 FINDINGS/IMPRESSION: The lungs are clear. The cardiomediastinal silhouette is unremarkable. No pleural effusion or pneumothorax. No acute osseous abnormality. ATED BY: SONIA SMITH MD DICTATED DATE/TIME: 02/13/252045 SIGNED BY: SONIA SMITH MD SIGNED DATE/TIME: 02/13/252045 CC: ORDERING PHYSICIAN: SRIRAMA,JEAN-PIERRE RESIDENT PROCEDURE(s): RUDVT - Rt Upper DVT REASON: r/o dvt ORDER NUMBER(s): [id number], ACCESSION NUMBER(s): [id number] CLINICAL HISTORY: Rule out DVT. COMPARISON: None. TECHNIQUE: Compression evaluation and color Doppler evaluation of the deep veins of the right upper extremity was performed. Color flow and spectral waveform analysis was performed. Realtime grayscale and Doppler ultrasound images of the deep venous structures with spectral waveform analysis were obtained. FINDINGS: This examination demonstrates normal compression and phasic flow of the deep veins of the right upper extremity with no evidence for thrombus within the internal jugular, subclavian, axillary, brachial, radial, and ulnar veins. There is superficial thrombus in the cephalic vein near the level of the antecubital fossa. Basilic vein is patent with normal flow and compressibility. IMPRESSION: 1. There is no evidence for DVT in the right upper extremity. 2. Superficial thrombus in the right cephalic vein. ATED BY: LEONEL GREGORY DO DICTATED DATE/TIME: 02/16/251831 SIGNED BY: LEONEL GREGORY DO SIGNED DATE/TIME: 02/16/251831 CC: ORDERING PHYSICIAN: GEE ROSALES PROCEDURE(s): CWMM - CARDIOLITE MULTIPLE REASON: chest pain ORDER NUMBER(s): [id number], ACCESSION NUMBER(s): [id number] APPROVED REPORT Exam: Nuclear Stress Test BMI: 0 Stress Test Details HR Max Heart Rate (APMHR): 157.353283 bpm Target HR (85% APMHR): 133.771109 bpm BP ECG Stress ECG Conclusion lvef 80% normal perfuiosn scan no ischemia NM EXAM: Myocardial Perfusion REST/STRESS Imaging Protocol: Rest Tc-99m/Stress Tc-99m 1 day Resting Data Rest SPECT myocardial perfusion imaging was performed in supine position 60 minutes following the intravenous injection of 9.8 mCi of Tc-99m Sestamibi. Time of rest injection: 07:55 Date: 02/17/2025 Time of rest imagin:55 Date: 02/17/2025 Administration Route: IV Administration Site: Left Arm Pharmacologic Stress Pharmacologic stress test was performed by injecting Regadenoson 0.4 mg IV push followed by the intravenous injection of 29.1 mCi of Tc-99m Sestamibi. Time of stress injection: 09:55 Date: 02/17/2025 Time of stress imagin:55 Date: 02/17/2025 Administration Route: IV Administration Site: Left Arm Gated Stress SPECT was performed 60 minutes after stress injection. The images were gated to evaluate regional wall motion and calculate left ventricular ejection fraction. Stress only was performed in the Supine position. Nuclear Conclusion Nuclear Findings: negative for ischemia lvef 80% normal perfuiosn scan no ischemia SIGNED BY: DALTON SANABRIA MD SIGNED DATE/TIME: 02/17/25 1323 CC: Condition at Discharge: Stable Final Diagnosis/Problems List Chest pain ruled out ACS NSTEMI type 2 Hypertensive Emergency Hypertensive heart disease Dyslipidemia Uncontrolled type 2 diabetes mellitus Discharge Disposition: Home Discharge Instruct/Medications Diet: Consistent carbohydrate, Cardiac 2g Na,low cholest Activity: No Restrictions, As Tolerated Follow Up/Referral: follow up with discharge Clinic in 1 week Follow-up with PCP Medications: As per EMR Miscellaneous Medications Gemfibrozil (Gemfibrozil), (Reported) [Metformin], (Reported) [Omeprazole], (Reported) Discharge Statement: "Patient was advised to return to the ER or call 911 if any headaches, dizziness, shortness of breath, chest pain, abdominal pain, bleeding, fevers, or worsening of medical condition. Patient was counseled about treatment plan, medications, possible side effects, patientverbalized understanding. All questions were answered to the best of my ability. This discharge took greater then 30 minutes in planning, reviewing documentation, counseling the patient, and discussing with other team members." ASSESSMENT ASSESSMENT Assessment Hypertensive emergency Visit Coding STANDARD RES Billing Provider: ALEXSANDRA GAMBOA MD Date of Service if different f: Feb 17, 2025 Common Visit Codes: [id number] DISCH DAY >30min JEAN-PIERRE CODY Feb 17, 2025 13:54
--- NOTE | 2025-02-17 14:12 | DVHPN2 ---
Consult Progress Note Date Seen: Feb 17, 2025 Subjective Review of Systems: CVS:Normal, RESPIRATORY:Normal, NEURO:Normal Other Systems: Denies any active cardiac symptoms Objective vital signs Vital Sign Date Time Temp Pulse Resp B/P (MAP) Pulse Ox O2 Delivery O2 Flow Rate FiO2 02/17/25 13:00 98.0 84 18 120/84 (96) 98 98.0 02/17/25 08:00 Room Air* 0 21 Total Intake and Output 02/16/25 02/16/25 02/17/25 15:00 23:00 07:00 Intake Total 650 ml 865 ml Balance 650 ml 865 ml medications Current Medications Medications Dose Ordered Sig/Wilma Route Start Time Stop Time Status Last Admin Dose Admin Ondansetron HCl 4 mg Q4HP PRN IV 02/13/25 21:00 Enoxaparin Sodium 40 mg DAILY SC 02/13/25 21:00 02/19/25 10:22 02/14/25 09:21 40 MG Insulin Glargine 15 units QAM SC 02/14/25 07:00 02/16/25 06:26 15 UNITS Diagnostic Test (Pha) 1 strip ACHS 02/13/25 22:00 02/17/25 11:48 1 STRIP Insulin Human Regular ACHS SC 02/13/25 22:00 02/17/25 11:54 3 UNITS Dextrose 50 ml UD PRN IV 02/13/25 21:15 Pantoprazole Sodium 40 mg DAILY@0600 PO 02/14/25 06:00 02/16/25 06:16 40 MG Ergocalciferol 50,000 unit Q7D PO 02/14/25 10:00 02/14/25 09:18 50,000 UNIT Acetaminophen 650 mg Q6HP PRN PO 02/14/25 02:15 02/17/25 11:52 650 MG Lisinopril 20 mg DAILY PO 02/14/25 10:00 02/17/25 11:48 20 MG Atorvastatin Calcium 40 mg HS PO 02/14/25 22:00 02/16/25 21:26 40 MG Aspirin 81 mg DAILY PO 02/15/25 10:00 02/17/25 11:47 81 MG Loratadine 10 mg DAILY PO 02/16/25 10:00 02/17/25 11:48 10 MG Examination: LUNGS:Normal, CVS:Normal, NEURO:Normal laboratory and microbiology Laboratory Tests 02/17/25 04:44 Test 02/17/25 04:44 Range/Units Serum Glucose 134 H 74-106 mg/dL Problem List/Assessment/Plan Problem List/Assessment/Plan Chest pain in the setting of hypertensive urgency Type 2 diabetes mellitus, uncontrolled (A1c 8.3%) Dyslipidemia History of tobacco use Plan/Recommendation () * Transthoracic echocardiogram revealed LVEF (60-65%) * Mild aortic tricuspid and mitral valve regurg. * Cardiolite stress test is negative for ischemia * Lipid-lowering agent and tight glycemic control There is no further cardiac work-up indicated. Kindly call with any questions or concerns. Thank you for allowing us to care for this patient. This medical document was created using an electronic medical record system with voice recognition software and computerized dictation system. Although this document has been carefully reviewed, there might still be some phonetic and typographical errors. Occasional wrong-word or ``sound-alike substitutions may have occurred due to the inherent limitations of voice recognition software. These areas are purely typographical due to imperfections of the software programs and do not reflect any compromise in the patient's medical care. Please read the chart carefully and recognize, using context, where these substitutions have occurred. Plan discussed with: Patient, Other Date of Service: Feb 17, 2025 Billing Provider: NANO ORTIZ Cardiology Common Codes: [id number] HOSP CARE(High NANO ORTIZ Feb 17, 2025 14:12
[2025-02-17 14:22] VITALS: BP 120/84; PULSE 100; RESP 14; TEMP 98.3; O2SAT 100
[2025-02-17] MEDS ORDERED: EMPA1TAB PO (14:22)
[2025-02-17] MEDS ORDERED: LISI20TA56 PO (14:22)
[2025-02-17] MEDS ORDERED: ATOR40TA52 PO (14:22)
[2025-02-17] MEDS ORDERED: ASPI-543 PO (14:22)
[2025-02-17] MEDS ORDERED: GLIP5TAB21 PO (14:22)
[2025-02-18] MEDS ORDERED: ATORVASTATIN 20 MG TAB PO SCH (22:00)
== END 2025-02-17 15:19 | disposition home or self-care (01) | DRG 305 ==
LOC: ER 18:18 → OVERFLOW 20:52 → TELE-CENTR 02-14 03:11
PROVIDERS: ADMIT Student in an Organized Health Care Education/Training Program; ATTEND Student in an Organized Health Care Education/Training Program
DX: I16.1 Hypertensive emergency (principal); E11.9 Type 2 diabetes mellitus without complications; I11.9 Hypertensive heart disease without heart failure; R07.89 Other chest pain; E78.5 Hyperlipidemia, unspecified; K80.20 Calculus of gallbladder without cholecystitis without obstruction; M54.2 Cervicalgia; Z79.82 Long term (current) use of aspirin; Z82.49 Family history of ischemic heart disease and other diseases of the circulatory system; Z87.891 Personal history of nicotine dependence; Z83.3 Family history of diabetes mellitus; Z79.899 Other long term (current) drug therapy
CPT/HCPCS: 36415; 71045; 78452; 80048; 80053; 80061; 80076; 80307; 81001; 82607; 82962; 83036; 84443; 84484; 85025; 85610; 85730; 93005; 93017; 93306; 93971; 96374; 99291; G0378; J1815; J1885